=== PATIENT | male | born 1930 | race Caucasian/White ===

== ENCOUNTER 2016-08-16 00:40 | Inpatient (IN) | payer MEDICARE, OTHER ==
[~2016-08-16] VITALS: Ht 170.2 cm; Wt 68.3 kg
[2016-08-16] VITALS (10 sets, daily range): BP systolic 106–138; BP diastolic 42–61; PULSE 60–82; RESP 16–20; O2SAT 95–98
[~2016-08-16 00:40] MED LIST: ALBU18HF INH; AMLO10TA3 PO; ASPI-973 PO; ATOR40TA69 PO; BIMA2.5D5 BOTH_EYES; CA C1TAB77 PO; CARV12.52 PO; CLOP75TA28 PO; DUTA0.5C16 PO; FUR20 PO; LEVO25TA5 PO; LORA-302 PO; MONT10TA23 PO; MULT1CAP33 PO; NIAC500T21 PO; NPH10OT1A BOTH_EARS; OMEG-38 PO; TAMS0.4C29 PO
--- NOTE | 2016-08-16 00:43 | ED.REPORT ---
HPI-Neurologic Deficit Date of Service Aug 16, 2016 ED Provider: Miah Arriaza DO An 85 year old male with a history of CAD, hypothyroidism, hypertension, hyperlipidemia, TIA, and cerebrovascular disease on Plavix and ASA presents to the ED via EMS accompanied by his daughter with weakness and confusion onset 00: 30 today upon awakening. The patient went to sleep at 21:30 complaining of a headache and woke up unable to use the restroom on his own, which is unusual for him. He was unable to follow commands and was visually hallucinating. The patient hasn't fallen and his daughter denies fever, coughing, nausea, vomiting , or diarrhea recently. EMS found him with normal vital signs, without focal weakness, and with his speech at baseline per his daughter. The patient was hospitalized on 07/28/16 for TIA with dysarthria and left arm weakness. Nursing Notes Stated Complaint: CONFUSION, WEAKNESS Nursing Notes Reviewed: Yes Allergies: Coded Allergies: Sulfa (Sulfonamide Antibiotics) (Verified Adverse Reaction, Intermediate, PREVIOUSLY REPORTED UPSET STOMACH, 07/28/16) Scheduled Albuterol Sulfate (Ventolin HFA Inhaler) 200 Puff/18 Gm Inhaler 2 PUFF INH q 4- 6 hrs Amlodipine (Amlodipine) 10 Mg Tablet 10 MG PO DAILY Atorvastatin (Lipitor) 40 Mg Tablet 40 MG PO DAILY Bimatoprost (Lumigan) 45 Drop/2.5 Ml Ophsoln 1 GTT BOTH_EYES HS Brimonidine Tartrate (Alphagan P) 5 Ml Drops 0.1 ML OP BID Carvedilol (Carvedilol) 12.5 Mg Tablet 12.5 MG PO QPM Clopidogrel (Clopidogrel) 75 Mg Tablet 75 MG PO DAILY Doxycycline Hyclate (Vibramycin) 100 Mg Capsule 100 MG PO BID Dutasteride (Dutasteride) 0.5 Mg Capsule 0.5 MG PO DAILY Furosemide (Furosemide) 20 Mg Tab 10 MG PO DAILY Levothyroxine (Levothyroxine) 25 Mcg Tablet 25 MCG PO DAILY Montelukast (Montelukast) 10 Mg Tablet 10 MG PO QPM Multivitamin (Multivitamins) 1 Each Capsule 1 EACH PO DAILY Niacinamide (Niacin) 500 Mg Tablet 500 MG PO DAILY Bascom-3 Fatty Acids/Fish Oil (Bascom 3 1,000 mg Softgel) 1 Each Capsule 1 EACH PO DAILY Bascom-3/Dha/Epa/Fish Oil (Fish Oil 1,000 mg Softgel) 1 Each Capsule 1 EACH PO DAILY Tamsulosin ER (Tamsulosin ER) 0.4 Mg Cap.er.24h 0.4 MG PO DAILY Scheduled PRN Acetaminophen/Codeine 300-30mg (Tylenol/Codeine #3) 1 Each Tablet 1 TABLET PO Q6hrs PRN PRN Pain Hydrocodone-Acetaminophen 5-300 mg (Hydrocodone-Acetaminophen 5-300 mg) 1 Each Tablet 1 TABLET PO QID PRN PRN For Pain Lorazepam (Ativan) 0.5 Mg Tablet 0.5-1 MG PO HS PRN PRN For Sleep General Time Seen by Provider: 00:40 Chief Complaint Other (Generalized Weakness) Hx Obtained From: Patient Arrived By: Ambulance Sudden in Onset?: Yes Onset Occurred: Just prior to arrival Symptom Duration: Since onset Severity: Current: No pain currently Severity: Maximum: No pain Associated with: Reports: Hallucinations, Denies: Fever Pertinent Negative: Relieved by nothing Related History: Reports: CVA/TIA, Hypertension Immunizations: Unknown Recent Healthcare: Recent hospitalization Similar Sx Previous: Yes Risk Factors NIH Stroke Scale Level of Consciousness: Alert and responsive (0) Ask Month & Age: Dysarthric/intubated (1) Right Arm Motor Drift (10s): No drift 10 sec (0) Left Arm Motor Drift (10s): No drift 10 sec (0) Right Leg Motor Drift (5s): Drift, not touch bed (1) Left Leg Motor Drift (5s): Drift, not touch bed (1) Dysarthria: Severe slur unintel (2) NIHSS Score: 5 Time NIHSS Performed: 21:11 Date NIHSS Performed: Aug 16, 2016 Past Medical History Past Medical History Notes: Past Medical History 1. CAD history of coronary artery bypass grafting. 2. History of cerebrovascular disease and TIA. History of bilateral carotid endarterectomy. 3. Hypothyroidism 4. Possible history of previous CVA 5. Hypertension. 6. Hyperlipidemia Past Surgical History Past surgical history includes coronary artery bypass graft surgery, coronary arthroplasty, bilateral carotid endarterectomy Family History Stroke Smoking History Former Smoker Social History Alcohol Use: Denies alcohol use Drug Use: Denies drug use Other Social History: Lives with children Occupation Retired Ambulatory Status Independent Review of Systems Constitutional: Denies: Fever Respiratory: Denies: Non-productive cough GI: Denies: Diarrhea, Nausea, Vomiting Neurologic: Reports: Headache, Weakness Psychiatric: Reports: Confusion, Hallucinations, visual Complete sys rev & neg: except as marked. Physical Exam Initial Vital Signs Vital Signs (First) Date Time Temp Pulse Resp B/P Pulse Ox O2 Delivery O2 Flow Rate FiO2 08/16/16 00:45 37.2 82 18 129/44 97 Room Air Initial VS: Reviewed ENT: Mucous membranes moist, Conjunctiva normal Neck: Supple, Full range of motion Abdomen / GI: Soft, Non-tender Skin: Warm, Dry, No cyanosis Psychiatric: Mood/affect normal, Behavior normal, Normal thought content General/Constitutional: Awake, Alert, No acute distress Head / Eyes: Atraumatic, Normocephalic Respiratory / Chest: Breath sounds NL, Breath sounds = bilat, No respiratory distress Cardiovascular: Heart rate NL, Regular rhythm, Heart sounds NL Neurologic: No sensory deficits Mental Status: Positive: Confused Speech: Positive: Slurred (Similar to baseline) Focal Weakness: Positive: Weakness diffuse L, Weakness diffuse R Interpretation & Diagnostics Lab Results Interpretation Result Diagram: 08/16/16 0643 08/16/16 0643 Test 08/16/16 00:46 08/16/16 02:15 Prothrombin Time 11.3sec (8.1-12.5) Prothromb Time International Ratio 1.05ratio Activated Partial Thromboplast Time 36.4sec (22.8-33.0) Troponin T 0.010ug/L (0.0-0.011) Procalcitonin < 0.05ng/mL (See Comment) Hold [place] Top Tube Received (Received) Urine Color Yellow (YELLOW) Urine Appearance Clear (CLEAR,HAZY) Urine pH 7.0 (5.0-8.0) Urine Specific [place] 1.010 (1.003-1.035) Urine Protein Negativemg/dL (NEG,TRACE) Urine Glucose (UA) Negativemg/dL (NEGATIVE) Urine Ketones Negativemg/dL (NEGATIVE) Urine Occult Blood Negative (NEGATIVE) Urine Nitrite Negative (NEGATIVE) Urine Bilirubin Negative (NEGATIVE) Urine Urobilinogen Normalmg/dL (NORMAL) Urine Leukocyte Esterase Negative (NEGATIVE) Urine RBC 0-2/hpf (0-2) Urine WBC 0-5/hpf (0-5) Urine Epithelial Cells Occasional/hpf (NONE-MOD) Urine Crystals None seen (NONE SEEN) Urine Bacteria None/hpf (NONE-FEW) Urine Hyaline Casts None/lpf (NONE) Urine Granular Casts None seen (NONE SEEN) Urine Waxy Casts None seen (NONE SEEN) Urine Red Blood Cell Casts None seen (NONE SEEN) Urine White Blood Cell Casts None seen (NONE SEEN) Urine Mucus None seen (None Seen) Urine Trichomonas None seen (NONE SEEN) Urine Yeast None (NONE SEEN) Urine Culture Reflexed Not indicated Pulse Oximetry Interpretation Pulse Oximetry: Pulse Ox normal ECG Interpretation ECG Interpretation: Sinus rhythm rate 68 Left axis deviation Time: 01:29 Interpreted by: ED physician CBC Interpretation WBC elevated, Hgb normal BMP / CMP Interpretation BMP/CMP normal Cardiac / Vascular Interp Cardiac markers normal X-Ray Chest Interpretation Chest Xray Interpretation: Chronic changes No pneumonia identified View: Portable, 1 view Interpretation / Wet Read by: Wet read ED physician CT Head Interpretation CONCLUSION: Moderate involutional changes. Moderate patchy low density bilaterally in the deep white matter likely due to chronic ischemic small vessel disease. No acute intracranial abnormality. Transmitted to ED by Jhonny Pineda M.D. at 08/16/16 - 1:05:36 AM PST Study: Head CT no contrast Interpretation / Wet Read by: Interpret - Radiologist Re-Eval/Medical Decision Med Decision/Clinical Course History is from Talha's daughter. Talha does not hear well and I am not convinced he knows exactly why he is here. Family she states that he feels fine. According to his daughter he went to bed at 9:30 tonight with a bad headache. He woke up at 12:30 AM confused. He was hallucinating that there was a cat in the house. They do not own a cat. They had to escort him and hold them up while he urinated. His legs would not move. He has a history of multiple TIAs and similar presentation so EMS was called. He presented as a stroke activation. I saw him upon presentation. Speech was markedly dysarthric but his daughter states that at that its baseline. Initially he had very weak legs and he could barely lift them up off the gurney. After CT could hold him up for good 5 seconds. Beyond that he is at his base line. Please see the stroke score. He does not meet any sort criteria for thrombolytics. He is well out of the three-hour window and I am not exactly sure this was a stroke. We went looking for stroke mimics. Chest x-ray shows lots of chronic stuff but nothing that I can call it pneumonia. Urine dip is negative. Influenza is negative. He does have a leukocytosis. Perhaps he had a TIA tonight. Certainly no signs of meningitis. His symptoms have improved. When he first rolled and he could not lift up his legs he is now moving them fine. His daughter thinks that at space line. We will admit him to telemetry bed for observation tonight. Source of Hx: Old records Re-Evaluation/Progress : Time of Eval: 02:11 Patient Status: Condition unchanged Re-Evaluation/Progress Note: Additional physical exam performed. Discussed with patient and his daughter CT and x-ray results, diagnosis, and plan for discharge. Follow-up and return to the ER instructions given. Patient and his daughter agrees with plan for care and all questions were addressed. Consultation : Referral / Consult Name: Ashok Chin MD Consulted With: Hospitalist Call Returned at: 02:34 Welding Rod Coater: Agrees with eval, Agrees with plan, Accepts admit Counseled Regarding: Diagnosis, Need for admission Discharge & Departure Shift Change Sign-Out Response to Therapy: Improved Impression: Primary Impression: TIA (transient ischemic attack) Transient cerebral ischemia type: unspecified Qualified Code: G45.9 - Transient cerebral ischemic attack, unspecified Additional Impressions: Hallucination Leg weakness, bilateral Disposition: ADMITTED TO HOSPITAL Discharge Condition All VS Reviewed: Yes Condition: Stable Referrals: Arden Dejesus MD (PCP) Laya Attestation Portions of this note were transcribed by Laurie Álvarez. I, Dr. Arriaaz, personally performed the history, physical exam, and medical decision-making; I reviewed and confirmed the accuracy of the information in the transcribed note. Signed by: Laya Bergman, 08/16/2016, 02:43 copies to: Arden Dejesus MD, Todd P DO Aug 16, 2016 00:43 LAURIE ÁLVAREZ Aug 16, 2016 00:53 Left axis deviation Time: 01:29 Interpreted by: ED physician CBC Interpretation WBC elevated, Hgb normal BMP / CMP Interpretation BMP/CMP normal Cardiac / Vascular Interp Cardiac markers normal X-Ray Chest Interpretation Chest Xray Interpretation: Chronic changes No pneumonia identified View: Portable, 1 view Interpretation / Wet Read by: Wet read ED physician CT Head Interpretation CONCLUSION: Moderate involutional changes. Moderate patchy low density bilaterally in the deep white matter likely due to chronic ischemic small vessel disease. No acute intracranial abnormality. Transmitted to ED by Jhonny Pineda M.D. at 08/16/16 - 1:05:36 AM PST Study: Head CT no contrast Interpretation / Wet Read by: Interpret - Radiologist Re-Eval/Medical Decision Med Decision/Clinical Course History is from Talha's daughter. Talha does not hear well and I am not convinced he knows exactly why he is here. Family she states that he feels fine. According to his daughter he went to bed at 9:30 tonight with a bad headache. He woke up at 12:30 AM confused. He was hallucinating that there was a cat in the house. They do not own a cat. They had to escort him and hold them up while he urinated. His legs would not move. He has a history of multiple TIAs and similar presentation so EMS was called. He presented as a stroke activation. I saw him upon presentation. Speech was markedly dysarthric but his daughter states that at that its baseline. Initially he had very weak legs and he could barely lift them up off the gurney. After CT could hold him up for good 5 seconds. Beyond that he is at his base line. Please see the stroke score. He does not meet any sort criteria for thrombolytics. He is well out of the three-hour window and I am not exactly sure this was a stroke. We went looking for stroke mimics. Chest x-ray shows lots of chronic stuff but nothing that I can call it pneumonia. Urine dip is negative. Influenza is negative. He does have a leukocytosis. Perhaps he had a TIA tonight. Certainly no signs of meningitis. His symptoms have improved. When he first rolled and he could not lift up his legs he is now moving them fine. His daughter thinks that at space line. We will admit him to telemetry bed for observation tonight. Source of Hx: Old records Re-Evaluation/Progress : Time of Eval: 02:11 Patient Status: Condition unchanged Re-Evaluation/Progress Note: Additional physical exam performed. Discussed with patient and his daughter CT and x-ray results, diagnosis, and plan for discharge. Follow-up and return to the ER instructions given. Patient and his daughter agrees with plan for care and all questions were addressed. Consultation : Referral / Consult Name: Ashok Chin MD Consulted With: Hospitalist Call Returned at: 02:34 Welding Rod Coater: Agrees with eval, Agrees with plan, Accepts admit Counseled Regarding: Diagnosis, Need for admission Discharge & Departure Shift Change Sign-Out Response to Therapy: Improved Impression: Primary Impression: TIA (transient ischemic attack) Transient cerebral ischemia type: unspecified Qualified Code: G45.9 - Transient cerebral ischemic attack, unspecified Additional Impressions: Hallucination Leg weakness, bilateral Disposition: ADMITTED TO HOSPITAL Discharge Condition All VS Reviewed: Yes Condition: Stable Referrals: Arden Dejesus MD (PCP) Scribe Attestation Portions of this note were transcribed by Laurie Álvarez. I, Dr. Arriaza, personally performed the history, physical exam, and medical decision-making; I reviewed and confirmed the accuracy of the information in the transcribed note. Signed by: Laya Bergman, 08/16/2016, 02:43 copies to: Arden Dejesus MD, Todd P DO Aug 16, 2016 00:43 LAURIE ÁLVAREZ Aug 16, 2016 00:53
[2016-08-16 00:57] LABS: BASOPHILS % (AUTO) 0.3 % (0-3); EOSINOPHILS % (AUTO) 1.3 % (0-5); MONOCYTES % (AUTO) 10.4 % (4-12); Mean Corpuscular Hemoglobin 27.5 pg (27.0-35.0); Mean Corpuscular Volume 86.6 fL (81-100); NEUTROPHILS % (AUTO) 76.5 % (40-74); Platelet Count 518 bil/L (150-400)
[2016-08-16 01:19] LABS: INR 1.05 ratio
[2016-08-16 01:29] LABS: TROPONIN T 0.01 ug/L (0.0-0.011)
[2016-08-16 02:36] LABS: APPEARANCE,URINE CLEAR (CLEAR,HAZY); COLOR,URINE YELLOW (YELLOW); OCCULT BLOOD,URINE NEGATIVE (NEGATIVE); UROBILINOGEN,URINE NORMAL (NORMAL)
[2016-08-16] MEDS ORDERED: Ondansetron 2 mg/mL 2 mL Inj IV PRN (03:40)
[2016-08-16] MEDS ORDERED: Polyethylene Glycol (PEG) 17 Gm Powder PO PRN (03:40)
[2016-08-16] MEDS ORDERED: Alum-Mag Hydrox-Simeth 30 mL Suspension PO PRN (03:40)
[2016-08-16] MEDS ORDERED: HYDR-3090 PO (03:49)
[2016-08-16] MEDS ORDERED: OMEG1CAP56 PO (03:49)
--- NOTE | 2016-08-16 05:19 | PCM.HPMED ---
Subjective Date of Service Aug 16, 2016 Primary Provider: Admitting Physician: Ashok Chin MD Primary Care Physician: Arden Dejesus MD Attending Physician: Ashok Chin MD Chief Complaint: Weakness and confusion History of Present Illness: Patient is an 85-year-old male with CAD s/p CABG, hypothyroidism, hypertension, dyslipidemia and history of TIA presenting weakness and confusion. Note the patient was recently hospitalized at [facility] on 07/28/2016 for dysarthria and left arm weakness, suspected secondary to TIA. The patient is accompanied by his daughter, Preethi, at bedside at time of visit. Patient's daughter is providing much of the history as the patient has slurred speech at baseline. She states the patient reported a headache yesterday (08/15/2016) evening then took Tylenol- codeine #4 and went to bed. He woke up about midnight with weakness, confusion and visual hallucinations. The patient subsequently asked his daughter to summon EMS and he was brought to [facility] ED for further evaluation. In the ED, the patient initially displayed some lower extremity weakness but did not meet criteria for thrombolytics. He received a head CT that did not show any acute intracranial abnormality. At time of visit, the patient was essentially back to his baseline per his daughter. The patient reports fatigue and bilateral ear discomfort but otherwise denies dizziness, lightheadedness, chest pain, nausea, emesis. In the ED, vitals: temp 37.2, HR 64, RR 16 satting 95%, BP 106/56. Notable labs : WBC 12.1, Hgb 9.8, Hct 30.9, platelets 518. Glucose 150. Review of Systems: A comprehensive review of systems was conducted with the patient and found to be negative except as above in the History of Present Illness. Allergies Coded Allergies: Sulfa (Sulfonamide Antibiotics) (Verified Adverse Reaction, Intermediate, PREVIOUSLY REPORTED UPSET STOMACH, 07/28/16) Home Medications Amlodipine 10mg PO daily ASA 81mg PO daily Atorvastatin 40mg PO daily Carvedilol 12.5mg PO BID Plavix 75mg PO daily Dutasteride 0.5mg PO daily Lasix 10mg PO daily Hydrocodone-acetaminophen 5/325mg PO Q6 hours PRN Lorazepam 0.5mg PO QHS PRN anxiety MgOH 400mg PO daily Montelukast 10mg PO QHS Multivitamin Niacin 500mg PO daily [place] 3 - vitamin E 1000mg PO daily Tamsulosin 0.4mg PO daily Bimatoprost 0.01% 1gtt QHS PMH CAD s/p CABG Hypothyroidism Dyslipidemia History of TIA Hypertension CKD stage III AAA Asthma Anemia . Surgical History CABG Bilateral endarterectomy Family History Mother in 80s from cardiac disease Father unknown Social History Occupation: Retired, former [employer] Hx Alcohol Use: No Hx Substance Use: No Hx Tobacco Use: Yes Smoking Status: Former Smoker Living Arrangement: with Family Exam Vital Signs Vital Sign - Last Date Time Temp Pulse Resp B/P Pulse Ox O2 Delivery O2 Flow Rate FiO2 08/16/16 03:40 37.1 69 20 138/61 96 Room Air Exam General: Patient lying in bed, No acute distress, well-developed, well-nourished , appropriately interactive HEENT: Normocephalic, atraumatic. External ears without defect. Pupils equal, round, and reactive to light. Anicteric sclerae, moist conjunctivae, and no lid lag. Oropharynx free of erythema and cobble stoning with moist mucosa. Dentures. Hearing aid right ear. Left ear with cerumen, otherwise no visible erythema. Right ear without erythema. Neck: Supple. No lymphadenopathy or thyromegaly. Cardiovascular: Regular rate and rhythm with no murmurs, rubs, or gallops appreciated Pulmonary: Clear to auscultation bilaterally with no crackles, wheezes, or rhonchi. Normal respiratory effort with no use of accessory muscles. Abdomen: Bowel tones present. Soft, nontender, nondistended. Extremities: No clubbing, cyanosis, edema, or lymphadenopathy appreciated. Skin: Normal temperature, turgor, and texture; no rash, ulcers, or subcutaneous nodules appreciated. Neurological: Cranial nerves grossly intact. Motor strength 5/5 in upper and lower extremities bilaterally. Sensation equal in upper and lower extremities bilaterally. Normal muscle strength, tone, and bulk. Slurred speech at baseline. Psychiatric: Normal mood and affect. Alert and oriented to person, place, and time. Lab and Diagnostics Result Diagram: 08/16/16 0046 08/16/16 0046 X-Rays, CTs and MRIs 08/16/2016 CT HEAD WITHOUT CONTRAST CONCLUSION: Moderate involutional changes. Moderate patchy low density bilaterally in the deep white matter likely due to chronic ischemic small vessel disease. No acute intracranial abnormality. Radiologist: Jhonny Pineda MD Assessment & Plan Patient is an 85-year-old male with CAD s/p CABG, hypothyroidism, hypertension, dyslipidemia and history of TIA presenting weakness and confusion and admitted for possible TIA. 1. Suspected TIA. Present on admission. Active -Patient reportedly with history of TIAs, most recently 07/28/2016 -Head CT without acute intracranial activity -Patient presented with confusion and weakness; now back at baseline -Neuro checks Q4 hours -Continue Plavix, ASA, statin -TSH pending -MRI stroke protocol -Echocardiogram with bubble study 2. Leukocytosis. Present on admission. Active -WBC 12.1 -Elevated at previous hospitalization (07/28/2017 - 07/29/2017) with WBC 16.1, 13.8 -Possibly reactive to stress; no signs of active infection (UA negative; No cough, fever, chills) -Procalcitonin pending 3. Hyperglycemia, acute. Present on admission. Active -Random blood glucose 150 -No reported history of diabetes -Continue to follow 4. Coronary artery disease s/p CABG. Present on admission -Continue statin, carvedilol 5. Hypertension, chronic. Present on admission -Patient currently normotensive. Will continue amlodipine 6. Hypothyroidism, chronic. Present on admission -Continue levothyroxine 25mcg -TSH pending 7. Dyslipidemia, chronic. Present on admission -Continue statin 8. Chronic kidney disease stage 3. Present on admission -Creatinine 1.07 -Avoid nephrotoxins -Continue to monitor 9. Normocytic anemia, chronic. Present on admission -Hgb 9.8, Hct 30.9 -Likely secondary to CKD. No obvious bleed -Monitor with CBC Patient Status: Patient is admitted under observation status with expected length of stay less than 2 midnights due to severity of presenting symptoms, risk of adverse event, and complexity of treatment plan. VTE Prophylaxis: Sub-Q Heparin (Unfractionated) Resuscitation Status: CPR: Attempt Resuscitation Attending Statement The patient was seen and examined together with Dr. Brian on 08/16/16 and I agree with the history, exam and plan as outlined in the note above. Arslan Brian DO Aug 16, 2016 03:58 Ashok Chin MD Aug 16, 2016 06:10
--- NOTE | 2016-08-16 05:22 | NUR ---
admit: pt arrived to [facility] with daughter. pt [place], daughter assisted with admit questions and assessment. med rec complete from home med list. A&OX3, mumbled speech which daughter states is pt's baseline.will continue to monitor.
[2016-08-16] MEDS ORDERED: LORazepam 0.5 mg Tablet PO PRN (05:25)
[2016-08-16] MEDS ORDERED: HYDROcodone-APAP 5-325 mg Tablet PO PRN (05:25)
[2016-08-16 07:05] LABS: BASOPHILS % (AUTO) 0.4 % (0-3); EOSINOPHILS % (AUTO) 1.5 % (0-5); MONOCYTES % (AUTO) 10.4 % (4-12); Mean Corpuscular Hemoglobin 27.5 pg (27.0-35.0); Mean Corpuscular Volume 86.1 fL (81-100); NEUTROPHILS % (AUTO) 72.1 % (40-74); Platelet Count 455 bil/L (150-400)
[2016-08-16] MEDS: Heparin 5,000 Unit/mL Inj SUBQ SCH ×3 (08:04→23:47)
[2016-08-16] MEDS: Omega-3 Fatty Acids 1,000 mg Capsule PO SCH (08:07)
--- NOTE | 2016-08-16 08:15 | DRSVH ---
PROCEDURE: X-RAY CHEST ONE VIEW, PORTABLE ([id number]) INDICATIONS: confusional state TECHNIQUE: One view of the chest was acquired. COMPARISON: [facility], CR, XR CHEST 1VW (PORTABLE), 07/29/2016, 10:26. [facility], CR, CHEST 1VW (PORTABLE), 04/21/2014, 21:40. FINDINGS: Surgical changes and devices: Stable time. Lungs and pleura: No pleural effusions or pneumothorax. Lungs are abnormal with a mild interstitial prominence likely related to reduced inspiratory volume. Mediastinum: Mediastinal contours appear normal. Heart size is normal. Bones and chest wall: No suspicious bony lesions. Overlying soft tissues appear unremarkable. IMPRESSION: No acute disease, reduced inspiratory volume. Prior sternotomy wires, presumed prior CAB G. Dictated by: Presley Butler M.D. on 08/16/2016 at 8:14 Approved by: Presley Butler M.D. on 08/16/2016 at 8:14
--- NOTE | 2016-08-16 08:16 | DRSVH ---
PROCEDURE: CT BRAIN WITHOUT CONTRAST ([id number]) INDICATIONS: CONFUSION, WEAKNESS TECHNIQUE: Noncontrast 4.5 mm thick angled axial sections acquired from the foramen magnum to the vertex, with c oronal reformats. COMPARISON: [facility], CT, CT BRAIN WO CON, 07/28/2016, 12:00. FINDINGS: Image quality: Excellent. CSF spaces: Basal cisterns are patent. No extra-axial fluid collections. The ventricles are symmet olive in size and shape. Brain: No intracranial bleeds or masses. There is cerebral volume loss for age, with resultant vent ricular and sulcal prominence. There are periventricular and deep white matter chronic small vessel ischemic changes. There is intracranial internal carotid artery atherosclerosis. Skull and face: Calvarium and visualized facial bones appear intact, without suspicious lesions. Sinuses: Visualized sinuses and mastoids are clear. IMPRESSION: Moderate microvascular atherosclerotic change, no acute disease. Note: These findings are concordant with the preliminary interpretation. Dictated by: Presley Butler M.D. on 08/16/2016 at 8:14 Approved by: Presley Butler M.D. on 08/16/2016 at 8:14
--- NOTE | 2016-08-16 10:07 | NUR ---
Evaluation completed. Rec: Echelon/Dysphagia Mechanical. Medication in pureed. Please go to "Notes" then click on "Assessments and Notes" (bottom left corner of screen). Then select appropriate discipline tab on top of screen.
[2016-08-16] MEDS: LORazepam 0.5 mg Tablet PO PRN ×2 (10:40→19:46)
--- NOTE | 2016-08-16 11:58 | NUR ---
Case Management D: Pt not in room, observation information provided and explained to pt's Eva who is in room.
[2016-08-16] MEDS ORDERED: LIP40 PO (12:09)
[2016-08-16] MEDS ORDERED: ALBU18HF INH (12:11)
[2016-08-16] MEDS ORDERED: ACET1TAB12 PO (12:16)
[2016-08-16] MEDS ORDERED: BRIM5DRO10 OP (12:21)
[2016-08-16] MEDS ORDERED: DOXY100C PO (12:28)
--- NOTE | 2016-08-16 12:46 | DRSVH ---
PROCEDURE: MRI STROKE PROTOCOL ([id number]) Pre- and post-contrast brain MRI, non-contrast brain MR angiogram, pre- and postcontrast neck MR harmony ogram INDICATIONS: weakness TECHNIQUE: Brain: Noncontrast axial T1 spin echo, axial T2 fast spin echo, sagittal and axial FLAIR, coronal T2 fast spin echo, axial gradient echo, axial diffusion and ADC through the brain. After the administr ation of contrast, axial 3D VIBE of the cranial vasculature and brain. Brain MRA: Non-contrast 3-D time of flight MR angiogram, with multiple qkxojku-olqtdfamw-yptotdtoys (MIP) reformats performed. Neck MRA: Axial and sagittal TruFISP through the neck. Coronal dynamic MR angiogram during administ ration of contrast in the arterial and venous phases, with 3-dimenstional kbrwojn-viwtxdnya-rzboshvmo n (MIP) reformats constructed from subtraction images. COMPARISON: [facility], US, CAROTID DUPLEX DOPPLER BILAT, 01/12/2011, 10:12. [facility], CT, CT BRAIN WO CON, 08/16/2016, 0:56. [facility], MR, MR ANGIO NECK W&WO CON, 07/28/2016, 18:05. [facility], MR, MR BRAIN W&WO CON, 07/28/2016, 18:05. FINDINGS: Image quality: Excessive motion artifact on several imaging sequences does result in image degradati on in suboptimal evaluation of the brain parenchyma for subtle abnormalities. BRAIN: Excessive motion artifact results in limited evaluation of the brain for subtle parenchymal a bnormalities or lesions. CSF spaces: No extra-axial fluid collections are evident. The basal cisterns are patent. The ventr icles and cortical sulci are slightly prominent, similar to the previous MRI. Brain: No intracranial bleeds or mass effects. Confluent areas of the increased flair signal are kyrie ntified within the periventricular white matter. Additional scattered areas of increased flair signa l are noted within the deep white matter of the supratentorial brain, which has a similar pattern to the previous study. Please note that evaluation for parenchymal masses is limited on this study rela bola to excessive motion artifact. Diffusion weighted images show no acute ischemic insults. Brainst em appears normal. Normal intravascular flow voids are present. No abnormal intracranial enhancemen t. Skull and face: Calvarial marrow signal is normal. Orbits appear normal. Sinuses: Mucosal thickening is present involving the left maxillary sinus. Otherwise, the paranasal sinuses are clear. There appear to be mastoid effusions bilaterally. BRAIN MR ANGIOGRAM: Mild motion artifact does result in difficulty evaluating for subtle abnormaliti es involving the intracranial vessels. Anterior circulation: Intracranial internal carotid arteries are normal in size and enhancement. Mil d irregularity involving the bilateral internal carotid arteries engulfed in the Luke and cavernous portions of the internal carotid arteries is felt to be related to atherosclerosis. The flow within the paired anterior cerebral arteries is normal and symmetric. The flow within the middle cerebral arteries is normal and symmetric. The anterior communicating artery is seen. No stenoses, occlusion s, or aneurysms. Posterior circulation: The visualized portions of the vertebral arteries demonstrate normal caliber, and join to form a normal appearing basilar artery. The flow within the posterior cerebral arteries is normal and symmetric. No stenoses, occlusions, or aneurysms. NECK MR ANGIOGRAM: Mild motion artifact is present. Carotids: There is atherosclerotic irregularity noted involving the right brachiocephalic artery and the left common carotid artery. There appears to be artifact from a stent involving the right brach iocephalic artery near the origin of the right common carotid artery. Subsequently, evaluation of th e origin of the right common carotid artery is not adequate. There is moderate atherosclerotic irreg ularity involving the left common carotid artery origin. The common carotid arteries are otherwise n ormal in course and caliber. Susceptibility artifact is noted at the left carotid bulb, which obscur es evaluation of the lumen at this location, similar to the previous exam. Flow is seen extending be yond this region. Mild atherosclerotic irregularity is noted involving the bilateral internal caroti d arteries without high grade stenosis, occlusion, or aneurysm. Posterior circulation: The origins of the vertebral arteries appear patent. Extensive tortuosity and mild to moderate atherosclerotic irregularity involving both vertebral arteries is present (right sl ightly greater than left). However, these vessels are widely patent without high-grade narrowing or aneurysm. They both join normally to form the basilar artery. Miscellaneous: Prominent atherosclerosis of the thoracic aorta arch is present. There is susceptibi lity artifact identified just beyond the level of the left common carotid artery, which is felt to be located at the origin of the left subclavian artery. The left subclavian artery is otherwise unrema rkable. Questionable areas of aneurysm along the posterior arch may be present. Pre-contrast images through the neck show no soft tissue abnormalities. IMPRESSION: Excessive motion artifact. BRAIN MRI: 1. No acute intracranial hemorrhage or ischemia. 2. Extensive chronic small vessel ischemic changes and parenchymal atrophy are similar to the previo us exam. 3. Excessive motion artifact limits evaluation of the brain for subtle abnormalities. BRAIN MR ANGIOGRAM: Unchanged appearance of the intracranial arteries within the anterior and posterior circulation. No occlusions or high-grade narrowing is present. No aneurysms. NECK MR ANGIOGRAM: 1. Unchanged appearance of the carotid and vertebral arteries without high-grade narrowing, aneurysm , or occlusion. 2. Artifact from a presumed stent within the left carotid bulb obscures evaluation of this portion o f the artery. However, flow beyond this region is present. 3. Artifact from presumed stents at the distal aspect right brachiocephalic artery near the right co mmon carotid artery origin and at the origin of the left subclavian artery are similar to the previou s exam and results in limited evaluation of these vessels at these locations. Flow is seen beyond the se regions. 4. Prominent irregularity of the thoracic aorta arch with possible aneurysmal dilatation on the post erior arch. Please consider CT angiogram of the thoracic aorta for better evaluation. The estimate of stenosis included in the report of the imaging study was calculated using the NASCET method Dictated by: Marcus Bonner M.D. on 08/16/2016 at 11:45 Approved by: Marcsu Bonner M.D. on 08/16/2016 at 11:45
[2016-08-16] MEDS ORDERED: Albuterol 2.5 mg/3 mL Inhalation Solution NEB PRN (14:20)
--- NOTE | 2016-08-16 14:48 | NUR ---
Social Work Note: Initial Assessment Data& Assessment: EMR reviewed. SW met with pt, pt and pt daughter at bedside to discuss discharge planning, SW role explained. Talha Higuera is a 85 year old male under observation for AMS, leg weakness. Pt has Medicare and [employer] insurance coverage. Pt sees Arden Dejesus MD for primary care. Pt and pt live with their daughter Preethi and son in law's home in [place]. Pt typically drives him to any appointments. Pt lives in a one story home with three steps to enter the home. Pt uses a FWW with a seat for ambulation assistance at baseline. Pt has slurred speech at baseline but is communicative. Pt has had HH a couple years ago, but pt family does not remember which company the services were through. Pt has not been to a SNF in the past. Pt is a but not service connected. Pt does not have any LTC insurance. Pt provided with DPOA paperwork to review and complete when possible. Pt family to transport pt when medically ready. PT evaluation is pending. SW to continue to follow for MD and PT recommendations. Pt and pt family deny any other needs at this time. SW to continue to follow if any needs arise. Plan: Anticipated discharge home via POV when medically ready, R/O home health services for PT. PT evaluation is pending. SW to continue to follow for MD and PT recommendations. Pt and pt family deny any other needs at this time. SW to continue to follow if any needs arise. BRAYAN Godoy Addendum: 08/16/16 at 1453 by TED MEREDITH Amended: Links added.
--- NOTE | 2016-08-16 18:36 | NUR ---
Mobility/Gait Patient Alert with mild confusion. impulsive and anxious at times throughout day. patient responds well and is calm when family is present. patient attempts to get OOB without assist when he feels the urge to void. unsteady on feet. 1 person assist with FWW. this afternoon patient had difficulty picking up right foot, dragging behind him. needs verbal cues to lift foot with each step. Dr Velasquez notified of change. continue to monitor.
--- NOTE | 2016-08-16 23:45 | PCM.PNMED ---
Subjective Date of Service Aug 16, 2016 Subjective Patient is back to his baseline neurological status according to his and daughter. He tends to mumble and also has diminished hearing. Throat is difficult to have much of a conversation with him. He does not have any new complaints. Exam Vital Signs Vital Sign - Last Date Time Temp Pulse Resp B/P Pulse Ox O2 Delivery O2 Flow Rate FiO2 08/16/16 21:28 37.4 68 18 116/56 96 Room Air Intake and Output 08/15/16 08/15/16 08/16/16 Cumulative From/Thru 15:00 23:00 07:00 08/16/16 00:45 - 08/16/16 06:45 Intake Total 0 ml 0 ml Output Total 250 ml 250 ml Balance -250 ml -250 ml Intake Oral 0 ml 0 ml Output Urine Total 250 ml 250 ml Exam General: Patient lying in bed, No acute distress, well-developed, well-nourished , appropriately interactive. However, he mumbles and is difficult to understand. This is normal for him according to his family. HEENT: Normocephalic, atraumatic. External ears without defect. Pupils equal, round, and reactive to light. Anicteric sclerae, moist conjunctivae, and no lid lag. Oropharynx free of erythema and cobble stoning with moist mucosa. Dentures. Hearing aid right ear. Left ear with cerumen, otherwise no visible erythema. Right ear without erythema. Neck: Supple. No lymphadenopathy or thyromegaly. Cardiovascular: Regular rate and rhythm with no murmurs, rubs, or gallops appreciated Pulmonary: Clear to auscultation bilaterally with no crackles, wheezes, or rhonchi. Normal respiratory effort with no use of accessory muscles. Abdomen: Bowel tones present. Soft, nontender, nondistended. Extremities: No clubbing, cyanosis, edema, or lymphadenopathy appreciated. Skin: Normal temperature, turgor, and texture; no rash, ulcers, or subcutaneous nodules appreciated. Neurological: Cranial nerves grossly intact. Motor strength 5/5 in upper and lower extremities bilaterally. Sensation equal in upper and lower extremities bilaterally. Normal muscle strength, tone, and bulk. Slurred, mumbling speech at baseline per family. Psychiatric: Normal mood and affect. Alert and oriented to person, place, and time. Lab and Diagnostics Result Diagram: 08/16/1643 08/16/1643 X-Rays, CTs and MRIs 08/16/2016 CT HEAD WITHOUT CONTRAST CONCLUSION: Moderate involutional changes. Moderate patchy low density bilaterally in the deep white matter likely due to chronic ischemic small vessel disease. No acute intracranial abnormality. Radiologist: Jhonny Pineda MD Cardiac Echo Impressions Echocardiogram Report Name: CAROLINE KAY Study Date: 08/30/2015 Height: 67 in Hospital Exam Location: [facility] Weight: 162 lb Gender: Other BSA: 1.8 m2 : 1930 Age: 84 yrs BP: 122/64 mmHg Reason For Study: Aortic valve regurgitation Ordering Physician: Performed By: Messi Schultz Referring Physician: Jose Dejesus Interpretation Summary Left ventricular size is at the upper limits of normal and left ventricular systolic function appears normal except for a mild dyssynchronous contraction pattern, consistent with a conduction abnormality and septal motion consistent with post-operative state but no other focal wall motion abnormalities. The ejection fraction is estimated to be 60-65%. The E/A ratio is reversed with an elevated E/E', suggesting impaired early relaxation of the left ventricle with possible increased filling pressures but is unchanged compared to the previous study. There has been no significant change since the previous study. The right ventricle is normal in size and function and is unchanged compared to the previous study. The right ventricular systolic pressure is estimated at 21 mmHg assuming a right atrial pressure of 3 mm Hg, and is unchanged compared to the previous study. The left atrium is mildly dilated and has mildly increased in size since the prior echo exam. There is mild mitral regurgitation and mild-moderate aortic regurgitation. Both are unchanged compared to the previous study. There is no other significant valvular heart disease. The ascending aorta is moderately enlarged but is unchanged compared to the previous study. The abdominal aorta is borderline dilated at 2.9 cm. Assessment & Plan Patient is an 85-year-old male with CAD s/p CABG, hypothyroidism, hypertension, dyslipidemia and history of TIA presenting weakness and confusion and admitted for possible TIA. 1. Suspected TIA. Present on admission. Active -Patient reportedly with history of TIAs, most recently 07/28/2016 -Head CT without acute intracranial activity -Patient presented with confusion and weakness; now back at baseline -Neuro checks Q4 hours -Continue Plavix, ASA, statin -TSH pending -MRI stroke protocol to be done in a.m. -Echocardiogram with bubble study - Will check CT angiogram of the chest as suggested by MRI stroke protocol to look for thoracic aortic aneurysm. 2. Leukocytosis. Present on admission. Active -WBC 12.1 -Elevated at previous hospitalization (07/28/2017 - 07/29/2017) with WBC 16.1, 13.8 -Possibly reactive to stress; no signs of active infection (UA negative; No cough, fever, chills) -Procalcitonin pending 3. Hyperglycemia, acute. Present on admission. Active -Random blood glucose 150 -No reported history of diabetes -Continue to follow 4. Coronary artery disease s/p CABG. Present on admission -Continue statin, carvedilol 5. Hypertension, chronic. Present on admission -Patient currently normotensive. Will continue amlodipine 6. Hypothyroidism, chronic. Present on admission -Continue levothyroxine 25mcg -TSH pending 7. Dyslipidemia, chronic. Present on admission -Continue statin 8. Chronic kidney disease stage 3. Present on admission -Creatinine 1.07 -Avoid nephrotoxins -Continue to monitor 9. Normocytic anemia, chronic. Present on admission -Hgb 9.8, Hct 30.9 -Likely secondary to CKD. No obvious bleed -Monitor with CBC Patient Status: Patient will be seen by Dr. Lon Watson tomorrow and will decide upon a treatment course. Pain Evaluation: Adequate Pain Control VTE Prophylaxis: Sub-Q Heparin (Unfractionated) Resuscitation Status: CPR: Attempt Resuscitation Paul Velasquez MD Aug 16, 2016 23:45
[2016-08-16] MEDS: Codeine-APAP 30-300 mg Tablet PO PRN (23:48)
[2016-08-17] VITALS (10 sets, daily range): BP systolic 110–134; BP diastolic 54–66; PULSE 65–74; RESP 16–18; O2SAT 95–97
--- NOTE | 2016-08-17 06:43 | NUR ---
Anxiety: Pt's daughter stayed with pt through the night, states pt has "panic attacks". Pt requested Ativan at bedtime and again just before midnight. At midnight, it was too early for more Ativan, pt was given Tylenol with codeine and able to calm down again with daughters presence. Pt does not use call light, bed alarm activated. Pt found trying to climb out of the end of the bed a couple times. Is standing with assistance at bedside to use the urinal.
[2016-08-17] MEDS: Heparin 5,000 Unit/mL Inj SUBQ SCH ×2 (08:56→19:18)
[2016-08-17] MEDS: Omega-3 Fatty Acids 1,000 mg Capsule PO SCH (08:58)
[2016-08-17 10:14] LABS: BASOPHILS % (AUTO) 0.3 % (0-3); EOSINOPHILS % (AUTO) 2.8 % (0-5); MONOCYTES % (AUTO) 6.9 % (4-12); Mean Corpuscular Hemoglobin 27.4 pg (27.0-35.0); NEUTROPHILS % (AUTO) 75.5 % (40-74); Platelet Count 463 bil/L (150-400)
[2016-08-17 10:31] LABS: Magnesium 1.9 mg/dL (1.6-2.6)
[2016-08-17] MEDS: LORazepam 0.5 mg Tablet PO PRN ×2 (11:32→21:11)
--- NOTE | 2016-08-17 13:18 | NUR ---
Evaluation completed. Please go to "Notes" then click on "Assessments and Notes" (bottom left corner of screen). Then select appropriate discipline tab on top of screen.
--- NOTE | 2016-08-17 15:01 | NUR ---
Evaluation completed. Please go to "Notes" then click on "Assessments and Notes" (bottom left corner of screen). Then select appropriate discipline tab on top of screen.
--- NOTE | 2016-08-17 15:10 | NUR ---
Social Work: continued Discharge Planning Data & Assessment: SW met with patient and patient's at bedside to discuss discharge planning. SW provided patient with a list of Home Health providers. Patient's stated that the patient has had [facility] in the past and that is their choice fo HH. SW granted [facility] access and notified [facility] of the referral. SW will obtain F2f and give it to [facility] once it is available. SW will continue to follow. Plan: Patient will discharge home with [facility] PT/OT and Nursing. SW will continue to follow. Katarina Dos Santos LMSW, ACSwapna
--- NOTE | 2016-08-17 17:51 | DRSVH ---
[facility] [address] [place] [address] Echocardiogram Report Name: CAROLINE WANG Study Date: 08/17/2016 Height: 67 in Hospital Exam Location: [facility] Weight: 151 lb Gender: Other BSA: 1.8 m2 : 1930 Age: 85 yrs BP: 134/61 mmHg Reason For Study: WEAKNESS, CONFUSION Ordering Physician: Performed By: Selma Valdez Referring Physician: Jose Dejesus Interpretation Summary 1) Normal left ventricular thickness, size, and systolic function (EF 60- 65%). 2) No obvious focal wall motion abnormalities noted but poor endocardial definition reduces the sensitivity for the detection of such. 3) Normal right ventricular size and function. 4) Grade 2 diastolic dysfunction (pseudonormalization) pattern, consistent with elevated filling pressures. 5) Mild to moderate aortic regurgitation present. 6) Moderate dilated ascending aorta (diameter 4.3cm). 7) Compared to the Echo done 08/30/2015, no significant change. Procedure: A two-dimensional transthoracic echocardiogram with color flow and Doppler was performed. The study quality was technically adequate. The patient was not able to follow breathing instructions. Comparison is made with the echocardiogram of 08-30-2015. The patient was in normal sinus rhythm during the exam. Left Ventricle: The left ventricle is normal in size. Left ventricular wall thickness is normal. Proximal septal thickening is noted. Left ventricular systolic function is normal. The ejection fraction is estimated to be 60-65%. There are no obvious focal wall motion abnormalities noted but poor endocardial definition reduces the sensitivity for the detection of such. Assessment of diastolic parameters suggests a pseudonormalization pattern, consistent with elevated filling pressures. Right Ventricle: The right ventricle is normal in size and function. Atria: The left atrium is moderately dilated. The right atrium is severely dilated. There is no Doppler evidence for an atrial septal defect. Injection of contrast documented no interatrial shunt. Mitral Valve: There is mild to moderate mitral annular calcification. There is mild mitral regurgitation. Aortic Valve: The aortic valve is trileaflet. The aortic valve opens well. There is no aortic valve stenosis. There is mild to moderate aortic regurgitation. Tricuspid Valve: The tricuspid valve leaflets are thin and pliable. There is a trace or physiologic amount of tricuspid regurgitation. Pulmonary artery pressures cannot be estimated because of the lack of a measurable TR jet velocity. Pulmonic Valve: The pulmonic valve leaflets are thin and pliable; valve motion is normal. There is a trace or physiologic amount of pulmonic regurgitation. Great Vessels: The aortic root is mildly dilated. The ascending aorta is moderately enlarged. The IVC is of normal diameter and collapses greater than 50% with a sniff. This suggests a low right atrial pressure of 3 mm Hg. Pericardium/ Pleura There is no pericardial effusion. There is no pleural effusion. MMode/2D Measurements & Calculations LVIDd: 5.1 cm LA dimension: 4.6 cm RA long axis LVOT diam LVIDs: 3.0 cm FS: 40.0 % LA A2 area: 18.7 cm RA area AoV Opening IVSd: 1.3 cm LA A4 area: 23.1 cm LVPWd: 0.98 cm LA length (vol): 5.6 cm: 30.0 cm Ao root diam LA vol: 65.2 ml RA vol LA vol index : 117.ml asc Aorta RA Diam: 4.3 cm : 36.3 ml/m2 : 65.7 mm2 LV cardenas. diameter/BSA LV sys. diameter/BSA (cm/m^2): 2.8 (cm/m^2): 1.7 Doppler Measurements & Calculations Ao V2 max MV E max naren MV E/A: 0.85 PA V2 max : 202.5 cm/sec : 110.2 cm/sec Med Peak E' Naren : 73.5 cm/sec Ao max PG MV A max naren PA mean P.2 mmHg : 16.4 mmHg : 130.2 cm/sec E/E' med: 25.4 PA Accel Time Ao mean PG MV P1/2t: 52.2 msec Lat Peak E' Naren : 0.13 sec LVOT Max Naren E/E' lat: 16.2 : 124.7 cm/sec Pulm A Revs Dur APOLINAR(I,D): 2.4 cm sev ratio MV A dur : 0.14 sec AI P1/2t : 475.3 msec AI dec slope : 168.3 cm/s2c MV dec time MV P1/2t max naren Ao V2 mean LV V1 max PG : 0.17 sec : 131.5 cm/sec MVA(P1/2t): 4.2 cm2 Ao V2 VTI LV V1 VTI: 25.5 cm APOLINAR(V,D): 2.3 cm2 PA V2 mean APOLINAR indexed to BSA E/e' average Pulm A Revs Dur - MV : 53.7 cm/sec (cm^2/m^2): 1.3 A Dur: 0.01 msec Reading Physician:05:50 PM
--- NOTE | 2016-08-17 18:20 | NUR ---
Ambulation/communication Assisted pt with FWW to bathroom and to use urinal several times during shift. Pt a little shaky on feet, and slightly impulsive as he gets out of bed. As instructed, pt and family always used the call light for assistance. Had no near falls, bed in low position, wheels locked and bed alarm on. Family in room at all times to help monitor, provide distraction, and assist with communication. Pt very [place] and has very mumbled speech. Hearing aids wont be available per family. Family help and communication appreciated.
--- NOTE | 2016-08-17 18:38 | DRSVH ---
PROCEDURE: CT ANGIOGRAPHY OF THE CHEST WITH CONTRAST ([id number]) INDICATIONS: Evaluate for thoracic aortic aneurysm as seen on MR TECHNIQUE: After the administration of intravenous contrast, 3 mm thick sections acquired from the lung apices t o the posterior lung bases. 3-dimensional maximum intensity projection (MIP) oblique sagittal reform ats were then acquired parallel to the aortic arch, and/or 3-dimensional volume rendering reformats. For radiation dose reduction, the following was used: automated exposure control. COMPARISON: [facility], CR, XR CHEST 1VW (PORTABLE), 08/16/2016, 1:14. [facility], MR, MR STROKE PROTOCOL, 08/16/2016, 11:15. FINDINGS: Image quality: There is motion artifact slightly limiting evaluation. Aorta: There is mild aneurysmal dilatation of the thoracic aorta, with the ascending aorta measuring up to 4.2 cm in diameter, the aortic arch measuring up to approximately 4 cm proximally and 4.1 cm di stally. The descending thoracic aorta measures up to 4.0 cm proximally and approximately 3.1 cm at t he level of the diaphragmatic hiatus. There is marked tortuosity of the thoracic aorta as well as ex tensive atherosclerotic vascular calcification and plaque. Within the abdomen, there is lobulated co ntour irregularity at the level of the renal arteries. There is a left anterolateral projection june uring approximately 1.5 cm with intraluminal thrombus suspicious for a thrombosed pseudoaneurysm. We sissy't clearly, there is also a left lateral lobulated projection with contrast extension suspicious f or a penetrating episodic ulcer or pseudoaneurysm. Within the visualized intrarenal abdominal aorta there is a dissection flap with the distal extent not visualized on the current study. There is a three-vessel aortic arch with a stent demonstrated in the proximal left subclavian artery at its origin. The visualized great vessels appear grossly patent, with the stent not well evaluated . There are focal stenoses at the origins of the celiac and superior mesenteric arteries of greater than 50%. There's a stent at the origin of the left renal artery with stent patency not well valuate d. There is a focal stenosis at the origin of the right renal artery of greater than 70%. Mediastinum: No hematomas. Heart size is normal. No pericardial effusion. There are postsurgical changes consistent with prior CABG. No mediastinal or hilar adenopathy by size criteria. Central pul monary arteries are normal in size. Esophagus is normal in caliber. No hiatal hernia. Lungs and pleura: There is dependent atelectasis bilaterally. In addition, there are medial subpleu ral opacities in the lower lobes including a lobulated lesion along the descending thoracic aorta. F indings are suggestive of chronic rounded atelectasis. There are calcified pleural plaques bilateral ly suggestive of prior asbestos exposure. No pleural effusions or pneumothorax. Central and periphe ral airways are patent and normal in caliber. Bones and chest wall: No axillary adenopathy by size criteria. Thyroid gland is heterogeneous with small indistinct nodules bilaterally. No suspicious bony lesions. No vertebral body compression fra ctures. Abdomen: Visualized upper abdominal solid organs and bowel loops appear normal. IMPRESSION: 1. Dissection of the infrarenal abdominal aorta partially visualized and of indeterminate acuity. R ecommend correlation clinically and dedicated repeat study of the distal aorta and iliac arteries for further evaluation when clinically feasible. 2. Small lobulated contour irregularities of the aorta at the level of the renal arteries suspicious for pseudoaneurysms or penetrating atherosclerotic ulcers. 3. Aneurysmal dilatation of the thoracic aorta as described. 4. Focal stenoses at the origins of the celiac and superior mesenteric arteries and the right renal artery. 5. Vascular stents at the origins of the left subclavian and left renal arteries with patency not we ll evaluated. Findings discussed with Dr. Velasquez on 08/17/16 at 6:30 PM. Dictated by: Lowell Abad M.D. on 08/17/2016 at 18:36 Approved by: Lowell Abad M.D. on 08/17/2016 at 18:36
--- NOTE | 2016-08-17 22:22 | CONS ---
[address] [address] CONSULTATION REPORT PATIENT: CAROLINE WANG : 1930 MR#: [id number] ADMIT: 08/16/2016 JOB ID: [id number] DATE OF SERVICE: 08/17/2016 REQUESTING PROVIDER: Paul Velasquez MD CHIEF COMPLAINT: Transient episodes of confusion. HISTORY OF PRESENT ILLNESS: The patient is a pleasant 85-year-old, right-handed man with multiple medical problems who presented to the hospital after a transient episode of confusion and generalized weakness. During that episode, his reports that he was unable to get words out or to follow any commands. She reports that these episodes have been occurring since late July and last for less than one hour. However, she notes that he is confused following the episodes, and the confusion may last longer than 1 hour. Reportedly, this episode was associated with the patient going to sleep at 9:30 in the evening after noting headache and waking up unable to use the restroom on his own and unable to follow commands and was noted to have visual hallucinations at that time. His describes the episodes as stereotyped episodes that have been ongoing since [facility]. He was admitted on July 28, 2016 for workup for a possible TIA, however, he underwent an extensive evaluation that was unremarkable. We discussed the differential diagnosis for his symptoms in detail. PRESENT MEDICATIONS: Include: 1. Tylenol p.r.n. 2. Albuterol p.r.n. 3. Maalox p.r.n. 4. Amlodipine. 5. Atorvastatin. 6. Carvedilol. 7. Clopidogrel 75 mg. 8. Tylenol with codeine as needed for pain. 9. Finasteride. 10. Furosemide. 11. Heparin. 12. Hydrocodone as needed for pain. 13. Latanoprost. 14. Levothyroxine. 15. Lorazepam p.r.n. 16. Montelukast. 17. Niacin. 18. Agate-3 fatty acids. 19. Zofran as needed for nausea. 20. Polyethylene glycol as needed for constipation. 21. Senna as needed for constipation. 22. Tamsulosin. 23. Multivitamins. IMAGING STUDIES: He underwent imaging studies here including a CT of the head which demonstrated moderate microvascular atherosclerotic changes with no acute disease. He underwent a chest x-ray, which demonstrated no acute disease with reduced inspiratory volume, prior sternotomy wires and presumed prior coronary artery bypass graft. He underwent a magnetic resonance imaging study of his brain, this is the 2nd study, which was limited by excessive motion artifact, however, noted no acute intracranial hemorrhage or ischemia, extensive chronic small vessel ischemic changes and parenchymal atrophy. Excessive motion artifact limits evaluation of the brain for subtle abnormalities. MRA demonstrated unchanged appearance of intracranial arteries within the anterior and posterior circulation. No occlusions or high-grade narrowing was noted. No aneurysms. Neck MRA demonstrated unchanged appearance of the carotid and vertebral arteries without high-grade narrowing, aneurysm, or occlusion. Artifact from a presumed stent within the left carotid bulb obscures evaluation of this portion of the artery, however, flow beyond this region is present. Artifact from presumed stents at the distal aspect of the right brachiocephalic artery near the right common carotid artery origin and the origin of the left subclavian artery are similar to the previous exam results in limited evaluation of these vessels at these locations. Flow is seen beyond these regions. Prominent irregularity of the thoracic aortic arch, with possible aneurysmal dilatation of the posterior arch. Please consider CT angiogram of the thoracic aorta for better evaluation. His reports no history of seizures. She reports no history of traumatic brain injury. She also notes no history of any symptoms of mild cognitive impairment or dementia. PAST MEDICAL HISTORY: Coronary artery disease, hypothyroidism, hypertension and dyslipidemia, chronic kidney disease, stage 3, abdominal aortic aneurysm, asthma and anemia. PAST SURGICAL HISTORY: Status post coronary artery bypass graft and bilateral carotid endarterectomy. HOME MEDICATIONS: Did include: 1. Amlodipine. 2. Aspirin 81 mg. 3. Atorvastatin. 4. Carvedilol. 5. Plavix 75 mg. 6. Lasix. 7. Hydrocodone/acetaminophen. 8. Lorazepam. 9. Magnesium oxide. 10. Montelukast. 11. Multivitamin. 12. Niacin. 13. Agate 3 fatty acid. 14. Tamsulosin. 15. Bimatoprost. 16. Dutasteride. FAMILY HISTORY: No neurologic disorders. SOCIAL HISTORY: He is retired. No tobacco, alcohol, or drugs. Lives with his . LABORATORY STUDIES: WBC 12.1, hemoglobin 9.8, hematocrit 30.9, and platelets of 518. Sodium 134, potassium 4.9, chloride was 94, bicarb 26, BUN was 22, creatinine was 1.07 and glucose was 150. PHYSICAL EXAMINATION: Temperature 37.0, pulse of 67, respiratory rate of 18, blood pressure 120/66, pulse oximetry of 97% on room air. General: The patient is a well-developed well-nourished man in no acute distress. He has severe auditory impairment and communication was primarily through written questions and instructions. Head: Normocephalic, atraumatic. Chest: Clear to auscultation. Heart: Regular rate and rhythm. Abdomen: Soft, nondistended, nontender. Extremities: No cyanosis, clubbing, or edema. Speech is dysarthric, however, his reports that is baseline speech for him given his auditory impairment. Neurologic examination: Mental status: He is awake, alert, oriented x3. Speech was dysarthric as noted above. No aphasia. His reports that his dysarthric speech started after the development of his severe auditory impairment which is bilateral. Cranial nerves: Pupils equal, round, reactive to light. Extraocular movements are smooth and conjugate with no evidence of nystagmus. His face appears symmetrical. Facial sensation was intact to light touch and temperature. Auditory sensation was intact to finger rub. Palatal elevation was symmetrical. Tongue was midline. Sternocleidomastoid and trapezii are 5/5 throughout bilaterally. Motor: Normal tone and bulk. Muscle strength 5/5 throughout. Sensation intact to light touch and temperature. Deep tendon reflexes were diminished, however, were symmetrical. Plantars were flexor bilaterally. Coordination: [id number] was somewhat tremulous on the left, however, was intact with no evidence of dysmetria. Gait was deferred. IMPRESSION: Transient stereotyped episodes of generalized weakness and confusion. We discussed the differential diagnosis in detail. It appears that he underwent an extensive evaluation for possible cerebrovascular etiology. I also discussed the possibility of a vascular dementing process in detail with him and his . However, his has not noticed any symptoms suggestive of this. I did discuss the increased risk of seizures in patients with dementia. She reports that at baseline he does not exhibit any signs of cognitive impairment or dementia. He continues to have episodes despite being on dual antiplatelet therapy and as noted above in the magnetic resonance angiograms, there is no evidence of significant intracranial or extracranial stenosis noted. Although he does have a history of coronary artery disease and is status post coronary artery bypass graft, there is no history of atrial fibrillation. I did discuss the differential diagnosis in detail with the patient and his . RECOMMENDATIONS: I do recommend obtaining an electroencephalogram. I do also recommend an empirical trial of an anticonvulsant. Given the side effect profile, I do recommend renally dosed levetiracetam. Given his present status of renal function, I do recommend 500 mg twice daily. I explained to him and his that this would be an empirical trial to exclude the possibility of a possible ictal etiology for his symptoms as an extensive evaluation for a cerebrovascular etiology that has been so far unrevealing. At this point, I do recommend that he stay on dual antiplatelet therapy. We discussed side effects of levetiracetam in detail. The patient and his agree to proceed with this medication. I did explain the nature of an empirical trial, that is, we would prescribe the medication and monitor the frequency of these stereotyped episodes. His has not noted any staring spells or shaking/twitching, however, she has noted that these episodes appear to be stereotyped in nature and have increased in frequency. Discuss seizure precautions. Will continue to follow. Thank you, again, kindly, Dr. Velasquez, for allowing me to participate in the care of this patient. Please feel free to contact me with any questions or concerns. ADDITIONAL INFORMATION: OBJECTIVE: Temperature 36.3, pulse of 67, respiratory rate of 18, blood pressure 149/64, pulse oximetry 97% on room air. General: The patient is a well-developed well-nourished man in no acute distress. He has severe auditory impairment and communicates primarily through written questions and answers. Head normocephalic, atraumatic. Chest clear to auscultation. Heart: Regular rate and rhythm. Abdomen: Soft, nondistended, nontender. Extremities: No cyanosis, clubbing, or edema. Speech is mildly dysarthric. However, his daughter reports that he is at baseline. NEUROLOGIC EXAMINATION: Mental status: He is awake, alert, oriented x3. Speech was noted to be mildly dysarthric as above, however, reportedly this is baseline. No aphasia. Cranial nerves: Pupils equal, round, reactive to light. Extraocular movements were smooth and conjugate with no evidence of nystagmus. Face appeared symmetrical. Facial sensation was intact to light touch and temperature. Auditory sensation was severely diminished to finger rub. Palatal elevation was symmetrical. Tongue was midline. Sternocleidomastoid and trapezii were 5/5 bilaterally. Motor: Normal tone and bulk. Muscle strength 5/5 bilaterally. Sensation was intact to light touch and temperature. Deep tendon reflexes were diminished, however, symmetrical. Plantars were flexor bilaterally. Coordination: [id number] was somewhat tremulous on the left, however, was intact with no evidence of dysmetria. Gait was deferred. Addenda added by YANNI 08/19/16 at 7:16am
[2016-08-18] VITALS (9 sets, daily range): BP systolic 116–149; BP diastolic 53–64; PULSE 66–77; RESP 16–18; O2SAT 92–97
--- NOTE | 2016-08-18 00:09 | PCM.PNMED ---
Subjective Date of Service Aug 18, 2016 Subjective He has no new complaints today. He has no chest pain and he has no abdominal pain. Exam Vital Signs Vital Sign - Last Date Time Temp Pulse Resp B/P Pulse Ox O2 Delivery O2 Flow Rate FiO2 08/17/16 20:47 37.0 69 18 127/61 97 Room Air Intake and Output 08/17/16 08/17/16 08/18/16 Cumulative From/Thru 15:00 23:00 07:00 08/16/16 00:45 - 08/17/16 21:05 Intake Total 400 ml 900 ml Output Total 301 ml 1377 ml Balance 99 ml -477 ml Intake Oral 400 ml 900 ml Output Urine Total 300 ml 1375 ml Urine/Stool Mix 1 ml 2 ml Exam General: Patient lying in bed, No acute distress, well-developed, well-nourished , appropriately interactive. However, he mumbles and is difficult to understand. This is normal for him according to his family. HEENT: Normocephalic, atraumatic. External ears without defect. Pupils equal, round, and reactive to light. Anicteric sclerae, moist conjunctivae, and no lid lag. Oropharynx free of erythema and cobble stoning with moist mucosa. Dentures. Hearing aid right ear. Left ear with cerumen, otherwise no visible erythema. Right ear without erythema. Neck: Supple. No lymphadenopathy or thyromegaly. Cardiovascular: Regular rate and rhythm with no murmurs, rubs, or gallops appreciated Pulmonary: Clear to auscultation bilaterally with no crackles, wheezes, or rhonchi. Normal respiratory effort with no use of accessory muscles. Abdomen: Bowel tones present. Soft, nontender, nondistended. Extremities: No clubbing, cyanosis, edema, or lymphadenopathy appreciated. Skin: Normal temperature, turgor, and texture; no rash, ulcers, or subcutaneous nodules appreciated. Neurological: Cranial nerves grossly intact. Motor strength 5/5 in upper and lower extremities bilaterally. Sensation equal in upper and lower extremities bilaterally. Normal muscle strength, tone, and bulk. Slurred, mumbling speech at baseline per family. Psychiatric: Normal mood and affect. Alert and oriented to person, place, and time. Lab and Diagnostics Result Diagram: 08/17/16 0940 08/17/16 0940 Microbiology Blood cultures are pending and influenza screen is negative X-Rays, CTs and MRIs 08/16/2016 CT HEAD WITHOUT CONTRAST CONCLUSION: Moderate involutional changes. Moderate patchy low density bilaterally in the deep white matter likely due to chronic ischemic small vessel disease. No acute intracranial abnormality. Radiologist: Jhonny Pineda MD Cardiac Echo Impressions Echocardiogram Report Name: CAROLINE KAY Study Date: 08/30/2015 Height: 67 in Hospital Exam Location: [facility] Weight: 162 lb Gender: Other BSA: 1.8 m2 : 1930 Age: 84 yrs BP: 122/64 mmHg Reason For Study: Aortic valve regurgitation Ordering Physician: Performed By: Messi Schultz Referring Physician: Jose Dejesus Interpretation Summary Left ventricular size is at the upper limits of normal and left ventricular systolic function appears normal except for a mild dyssynchronous contraction pattern, consistent with a conduction abnormality and septal motion consistent with post-operative state but no other focal wall motion abnormalities. The ejection fraction is estimated to be 60-65%. The E/A ratio is reversed with an elevated E/E', suggesting impaired early relaxation of the left ventricle with possible increased filling pressures but is unchanged compared to the previous study. There has been no significant change since the previous study. The right ventricle is normal in size and function and is unchanged compared to the previous study. The right ventricular systolic pressure is estimated at 21 mmHg assuming a right atrial pressure of 3 mm Hg, and is unchanged compared to the previous study. The left atrium is mildly dilated and has mildly increased in size since the prior echo exam. There is mild mitral regurgitation and mild-moderate aortic regurgitation. Both are unchanged compared to the previous study. There is no other significant valvular heart disease. The ascending aorta is moderately enlarged but is unchanged compared to the previous study. The abdominal aorta is borderline dilated at 2.9 cm. Assessment & Plan Patient is an 85-year-old male with CAD s/p CABG, hypothyroidism, hypertension, dyslipidemia and history of TIA presenting weakness and confusion and admitted for possible TIA. 1. Suspected TIA. Present on admission. Active -Patient reportedly with history of TIAs, most recently 07/28/2016 -Head CT without acute intracranial activity -Patient presented with confusion and weakness; now back at baseline -Neuro checks Q4 hours -Continue Plavix, ASA, statin -TSH pending -MRI stroke protocol to be done in a.m. -Echocardiogram with bubble study - He have checked CT angiogram of the chest as suggested by MRI stroke protocol to look for thoracic aortic aneurysm. 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 I discussed this with Dr. Segal who is a plant floor automation manager health management consultant and he also believes it is chronic and nothing to worry about. A repeat CT angiogram was recommended by radiology and could be performed to see if there is any progression of the dissection the next 48-[address] Watson his ordered an EEG and awaiting final interpretation. 2. Leukocytosis. Present on admission. Active -WBC 12.1 -Elevated at previous hospitalization (07/28/2017 - 07/29/2017) with WBC 16.1, 13.8 -Possibly reactive to stress; no signs of active infection (UA negative; No cough, fever, chills) -Procalcitonin pending 3. Hyperglycemia, acute. Present on admission. Active -Random blood glucose 150 -No reported history of diabetes -Continue to follow 4. Coronary artery disease s/p CABG. Present on admission -Continue statin, carvedilol 5. Hypertension, chronic. Present on admission -Patient currently normotensive. Will continue amlodipine 6. Hypothyroidism, chronic. Present on admission -Continue levothyroxine 25mcg -TSH pending 7. Dyslipidemia, chronic. Present on admission -Continue statin 8. Chronic kidney disease stage 3. Present on admission -Creatinine 1.07 -Avoid nephrotoxins -Continue to monitor 9. Normocytic anemia, chronic. Present on admission -Hgb 9.8, Hct 30.9 -Likely secondary to CKD. No obvious bleed -Monitor with CBC Patient Status: Patient will be seen by Dr. Lon Watson tomorrow and will decide upon a treatment course. Pain Evaluation: Adequate Pain Control VTE Prophylaxis: Sub-Q Heparin (Unfractionated) VTE Mechanical Devices: Venous Foot Pump Resuscitation Status: CPR: Attempt Resuscitation EvaPaul MD Aug 18, 2016 00:09
[2016-08-18] MEDS: Heparin 5,000 Unit/mL Inj SUBQ SCH ×3 (01:35→16:22)
--- NOTE | 2016-08-18 05:36 | NUR ---
PT ACTIVITY Pt has slept intermittently on shift. No c/o pain. No other c/o, except for some itching at end of shift. Pts home lotion put on arms and legs to help relieve symptoms. Will ask day shift to change bedding and give pt a bed bath. Pts daughter stayed overnight. Continue to monitor. Call light in reach. Bed alarm on. Intentional rounding. Addendum: 08/18/16 at 0626 by RONAK MORTON RN At end of shift pt c/o back pain. Pt only wanted 1/2 pill of tylenol w/ codeine, dose given. Pt continued to c/o itching, pt stated, "I've been itching all night, it was after the CT when I got the injection. I had a CT before without the injection, and I was fine." Pts daughter stated, pt takes Claritin at home sometimes for itching. called, rec'd orders for Claritin, dose given. Continue to monitor. Addendum: 08/18/16 at 0656 by RONAK MORTON RN When pain and itching reassessed. Pt states, "It's going away."
[2016-08-18] MEDS: Codeine-APAP 30-300 mg Tablet PO PRN (05:55)
[2016-08-18 07:25] LABS: BASOPHILS % (AUTO) 0.6 % (0-3); EOSINOPHILS % (AUTO) 2.9 % (0-5); MONOCYTES % (AUTO) 8.9 % (4-12); Mean Corpuscular Hemoglobin 27.5 pg (27.0-35.0); Mean Corpuscular Volume 84.9 fL (81-100); NEUTROPHILS % (AUTO) 72.7 % (40-74); Platelet Count 475 bil/L (150-400)
[2016-08-18 07:42] LABS: Magnesium 1.9 mg/dL (1.6-2.6); Phosphorus 3.1 mg/dL (2.5-4.9)
[2016-08-18] MEDS: Omega-3 Fatty Acids 1,000 mg Capsule PO SCH (08:59)
--- NOTE | 2016-08-18 15:03 | NUR ---
Case Management: Spoke with patient, and family at the bedside, regarding observation status, Medicare B coverage this hospitalization. Patient status is being reviewed daily. Will follow-up with patient and family again tomorrow if they have further questions/concerns. Megan Melendez RN
--- NOTE | 2016-08-18 15:03 | NUR ---
NUTRITION ASSESSMENT ASSESS: Pt is an 85yo male admitted for AMS, general weakness and hallucinations. Pt has a history of TIAs, and a recent admit for a suspected TIA. Pt presented w/ confusion which has resolved. Per ST evaluation, reports that pt has speech deficit from prior TIA, and follows a dysphagia diet at home. also notes increased coughing at meals, and using straws for all liquids. PMHx: CAD s/p CABG, hypothyroidism, DLD, Hx of TIA, HTN, CKD Stage III, Asthma, Anemia, AAA LABS: Gluc 112, Alb 3.2 MEDS: Lasix, Plavix, Lipitor, MVI, Niacin, Synthroid GI: 0 BM SKIN: Sony 19 WT: 68.5 kg BMI: 23.9 kg/m2 DIET: Dysphagia Mechanical w/ NTL PO Ave. 50% EST. NEEDS: Kcals: 8905-4887 kcal (25-30 kcal/kg BW) Protein: 70-85g (1.0-1.2g/kg BW) NUTRITION DIAGNOSIS: 1) Chew/swallowing difficulties related to general weakness, recent suspected TIA and chronic dysphagia diet as evidenced by diet recommendations per ST evaluation. 2) Inadequate oral intake related to chronic dysphagia diet and general weakness as evidenced by average PO intake of 50%. NUTRITION INTERVENTION: 1) Monitor diet tolerance per ST evaluation. 2) Add Mighty Shakes on L&D trays. MONITOR / EVAL: Diet tolerance, PO intake, labs, weight, GI, POC. Continue to monitor per moderate nutrition risk guidelines. Addendum: 08/18/16 at [address] Auxiliary student documentation reviewed. I agree with above documentation. Alena Clemente RDN, CD
--- NOTE | 2016-08-18 17:48 | NUR ---
ITCHING/CT/HEARING P-patient extremely hard of hearing, c/o itching on limbs, and will have CT tomorrow. I-Patient hearing aid reapplied, nurse face patient when speaking. MD to order Benadryl for itching. E- Patient able to understand, appears less confused.
[2016-08-18] MEDS: diphenhydrAMINE 25 mg Capsule PO PRN (18:32)
[2016-08-18] MEDS: levETIRAcetam 500 mg Tablet PO SCH (20:16)
--- NOTE | 2016-08-18 20:31 | CONS ---
[address] [address] CONSULTATION REPORT PATIENT: CAROLINE WANG : 1930 MR#: [id number] ADMIT: 08/16/2016 JOB ID: [id number] DATE OF SERVICE: 08/18/2016 Neurology progress note. SUBJECTIVE: Today I met his daughter. She was at the bedside. She reports that there have been no overnight events. He has not had any further spells. She also reports that they have attributed his speech to a prior TIA or stroke. However, I explained that I suspect that this may be secondary to his severe auditory impairment as an extensive evaluation has been performed and did not reveal any evidence of a stroke or any evidence suggestive of a recent transient ischemic attack. I did also discuss in detail the nature of the differential diagnosis for this patient. We discussed the potential etiology for the spells. I explained that TIAs were unlikely to be the explanation for his multiple stereotyped spells as, by this point, he would have most likely had a stroke. We discussed the possibility that the spells may represent an ictal phenomenon. Although the mild degree of slowing noted over the left temporal lobe intermittently on the electroencephalogram is not clearly ictal in nature, it can be seen in a postictal satting. We did discuss an empirical trial of levetiracetam. We did discuss starting with a renally appropriate dose. In this case, 500 mg twice daily. Reviewed side effects in detail. There have been no overnight spells. We discussed the role of levetiracetam as an empirical trial. We also discussed the importance of followup as an outpatient. We discussed the possibility that the spells may represent an ictal phenomenon in detail. I discussed this with the patient and the patient's daughter. Thank you, again, kindly Dr. Velasquez, for allowing me to participate in the care of this patient. Please feel free to contact me with any questions or concerns. I advised followup with [facility] for a followup appointment.
[2016-08-19] VITALS (7 sets, daily range): BP systolic 111–132; BP diastolic 52–65; PULSE 62–85; RESP 16–19; O2SAT 94–98
--- NOTE | 2016-08-19 00:36 | PCM.PNMED ---
Subjective Date of Service Aug 19, 2016 Subjective He has no new complaints other than some itching. There is no rash and itching is very mild and was mostly relieved with his Claritin pill. He has no abdominal pain but does have chronic back pain. Exam Vital Signs Vital Sign - Last Date Time Temp Pulse Resp B/P Pulse Ox O2 Delivery O2 Flow Rate FiO2 08/18/16 22:23 37.1 77 18 125/59 97 Room Air Intake and Output 08/18/16 08/18/16 08/19/16 Cumulative From/Thru 15:00 23:00 07:00 08/16/16 00:45 - 08/18/16 20:02 Intake Total 500 ml 1854 ml Output Total 875 ml 3002 ml Balance -375 ml -1148 ml Intake Oral 500 ml 1854 ml Output Urine Total 875 ml 3000 ml Urine/Stool Mix 2 ml # Voids 1 2 Exam General: Patient lying in bed, No acute distress, well-developed, well-nourished , appropriately interactive. However, he mumbles and is difficult to understand. This is normal for him according to his family. HEENT: Normocephalic, atraumatic. External ears without defect. Pupils equal, round, and reactive to light. Anicteric sclerae, moist conjunctivae, and no lid lag. Oropharynx free of erythema and cobble stoning with moist mucosa. Dentures. Hearing aid right ear. Left ear with cerumen, otherwise no visible erythema. Right ear without erythema. Neck: Supple. No lymphadenopathy or thyromegaly. Cardiovascular: Regular rate and rhythm with no murmurs, rubs, or gallops appreciated Pulmonary: Clear to auscultation bilaterally with no crackles, wheezes, or rhonchi. Normal respiratory effort with no use of accessory muscles. Abdomen: Bowel tones present. Soft, nontender, nondistended. Extremities: No clubbing, cyanosis, edema, or lymphadenopathy appreciated. Skin: Normal temperature, turgor, and texture; no rash, ulcers, or subcutaneous nodules appreciated. Neurological: Cranial nerves grossly intact. Motor strength 5/5 in upper and lower extremities bilaterally. Sensation equal in upper and lower extremities bilaterally. Normal muscle strength, tone, and bulk. Slurred, mumbling speech at baseline per family. Psychiatric: Normal mood and affect. Alert and oriented to person, place, and time. Lab and Diagnostics Result Diagram: 1/17/17 0655 08/18/16654 Microbiology Blood cultures are pending and influenza screen is negative X-Rays, CTs and MRIs 08/16/2016 CT HEAD WITHOUT CONTRAST CONCLUSION: Moderate involutional changes. Moderate patchy low density bilaterally in the deep white matter likely due to chronic ischemic small vessel disease. No acute intracranial abnormality. Radiologist: Jhonny Pineda MD Cardiac Echo Impressions Echocardiogram Report Name: CAROLINE KAY Study Date: 08/30/2015 Height: 67 in Hospital Exam Location: [facility] Weight: 162 lb Gender: Other BSA: 1.8 m2 : 1930 Age: 84 yrs BP: 122/64 mmHg Reason For Study: Aortic valve regurgitation Ordering Physician: Performed By: Messi Schultz Referring Physician: Jose Dejesus Interpretation Summary Left ventricular size is at the upper limits of normal and left ventricular systolic function appears normal except for a mild dyssynchronous contraction pattern, consistent with a conduction abnormality and septal motion consistent with post-operative state but no other focal wall motion abnormalities. The ejection fraction is estimated to be 60-65%. The E/A ratio is reversed with an elevated E/E', suggesting impaired early relaxation of the left ventricle with possible increased filling pressures but is unchanged compared to the previous study. There has been no significant change since the previous study. The right ventricle is normal in size and function and is unchanged compared to the previous study. The right ventricular systolic pressure is estimated at 21 mmHg assuming a right atrial pressure of 3 mm Hg, and is unchanged compared to the previous study. The left atrium is mildly dilated and has mildly increased in size since the prior echo exam. There is mild mitral regurgitation and mild-moderate aortic regurgitation. Both are unchanged compared to the previous study. There is no other significant valvular heart disease. The ascending aorta is moderately enlarged but is unchanged compared to the previous study. The abdominal aorta is borderline dilated at 2.9 cm. Assessment & Plan Patient is an 85-year-old male with CAD s/p CABG, hypothyroidism, hypertension, dyslipidemia and history of TIA presenting weakness and confusion and admitted for possible TIA. 1. Suspected TIA. Present on admission. Active -Patient reportedly with history of TIAs, most recently 07/28/2016 -Head CT without acute intracranial activity -Patient presented with confusion and weakness; now back at baseline -Neuro checks Q4 hours -Continue Plavix, ASA, statin -TSH pending -MRI stroke protocol to be done in a.m. -Echocardiogram with bubble study - He have checked CT angiogram of the chest as suggested by MRI stroke protocol to look for thoracic aortic aneurysm. 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 I discussed this with Dr. Eugene, who is the senior bookkeeper physical education specialist, and he also believes it is chronic and nothing to worry about. A repeat CT angiogram was recommended by radiology and could be performed to see if there is any progression of the dissection the next 48-72 hours. We will order CT angiogram again in a.m. to C3 is any change in the dissection. Dr. Watson his ordered an EEG and awaiting final interpretation: Dr. Watson's recommendations today are as follows. "Today I met his daughter. She was at the bedside. She reports that there have been no overnight events. He has not had any further spells. She also reports that they have attributed his speech to a prior TIA or stroke. However, I explained that I suspect that this may be secondary to his severe auditory impairment as an extensive evaluation has been performed and did not reveal any evidence of a stroke or any evidence suggestive of a recent transient ischemic attack. I did also discuss in detail the nature of the differential diagnosis for this patient. We discussed the potential etiology for the spells. I explained that TIAs were unlikely to be the explanation for his multiple stereotyped spells as, by this point, he would have most likely had a stroke. We discussed the possibility that the spells may represent an ictal phenomenon. Although the mild degree of slowing noted over the left temporal lobe intermittently on the electroencephalogram is not clearly ictal in nature, it can be seen in a postictal satting. We did discuss an empirical trial of levetiracetam. We did discuss starting with a renally appropriate dose. In this case, 500 mg twice daily. Reviewed side effects in detail. There have been no overnight spells. We discussed the role of levetiracetam as an empirical trial. We also discussed the importance of followup as an outpatient. We discussed the possibility that the spells may represent an ictal phenomenon in detail. I discussed this with the patient and the patient's daughter." 2. Leukocytosis. Present on admission. Active -WBC improved from 12.1 to 8.9 today -Elevated at previous hospitalization (07/28/2017 - 07/29/2017) with WBC 16.1, 13.8 -Possibly reactive to stress; no signs of active infection (UA negative; No cough, fever, chills) -Procalcitonin pending 3. Hyperglycemia, acute. Present on admission. Active -Random blood glucose 150 -No reported history of diabetes -Continue to follow 4. Coronary artery disease s/p CABG. Present on admission -Continue statin, carvedilol 5. Hypertension, chronic. Present on admission -Patient currently normotensive. Will continue amlodipine 6. Hypothyroidism, chronic. Present on admission -Continue levothyroxine 25mcg -TSH pending 7. Dyslipidemia, chronic. Present on admission -Continue statin 8. Chronic kidney disease stage 3. Present on admission -Creatinine 1.07 -Avoid nephrotoxins -Continue to monitor 9. Normocytic anemia, chronic. Present on admission -Hgb 9.8, Hct 30.9 -Likely secondary to CKD. No obvious bleed -Monitor with CBC Patient Status: Discussed case with patient's daughter and son-in-law at length at bedside as the patient's was ill today. Would like to proceed with a CT and mammogram again today to compare with previous film to see if there is any progression of his aortic dissection in the infrarenal area. This is stable patient likely will be able to go home the next 24-48 hours. Pain Evaluation: Adequate Pain Control VTE Prophylaxis: Sub-Q Heparin (Unfractionated) VTE Mechanical Devices: Venous Foot Pump Resuscitation Status: CPR: Attempt Resuscitation Paul Velasquez MD Aug 19, 2016 00:35
[2016-08-19] MEDS: Heparin 5,000 Unit/mL Inj SUBQ SCH ×3 (01:30→18:33)
--- NOTE | 2016-08-19 06:17 | NUR ---
Mentation Pt has not varied far from usual base per daughter, neuro checks q4 . pt is cooperative and pleasant . Daughter in room assisting w ADL. Room Air Tele SR 76 Saline locked
[2016-08-19] MEDS: Omega-3 Fatty Acids 1,000 mg Capsule PO SCH (08:18)
[2016-08-19] MEDS: levETIRAcetam 500 mg Tablet PO SCH ×2 (08:20→21:32)
[2016-08-19] MEDS ORDERED: 0.9% Sodium Chloride 500 ML IV ONE (09:20)
[2016-08-19 09:59] LABS: BASOPHILS % (AUTO) 0.6 % (0-3); MONOCYTES % (AUTO) 8.6 % (4-12); Mean Corpuscular Hemoglobin 27.2 pg (27.0-35.0); Mean Corpuscular Volume 85.1 fL (81-100); NEUTROPHILS % (AUTO) 74.1 % (40-74); Platelet Count 468 bil/L (150-400)
--- NOTE | 2016-08-19 10:58 | NUR ---
Case Management: Clarification of patient status: inpatient per MD order on 08/19/16. Megan Melendez RN
[2016-08-19] MEDS ORDERED: 0.9% Sodium Chloride 500 ML ONE (13:30)
[2016-08-19] MEDS: diphenhydrAMINE 25 mg Capsule PO PRN (14:29)
--- NOTE | 2016-08-19 14:35 | DRSVH ---
PROCEDURE: ANGIO ABD/PELVIS W/CON INDICATIONS: Dissecting Infrarenal aortic aneurysm TECHNIQUE: After the administration of intravenous contrast, 2 and 5 mm sections acquired from the diaphragm to the iliac crests. 3-dimensional maximum intensity projection (MIP) coronal and sagittal reformats, a nd/or 3-dimensional volume rendering reformatting was then performed. For radiation dose reduction, the following was used: automated exposure control. COMPARISON: [facility], CT, CT ANGIO CHEST, 08/17/2016, 17:49. FINDINGS: Image quality: Excellent. Extravascular tissues: Cardiomegaly is present. Right pleural calcifications are present. There is mi ld dependent right basilar scarring versus atelectasis, as before. Liver and spleen are normal in siz e and enhancement. Gallbladder is contracted. Biliary system is non dilated. Pancreas enhances nor rachelle. No adrenal nodules. Kidneys are normal in size and enhancement, without hydronephrosis. Non -opacified bowel loops demonstrate normal wall thickness and caliber. No free fluid or air. No retr operitoneal or mesenteric adenopathy. Urinary bladder is decompressed. No ventral hernias. No suspic ious bony abnormalities. Healed left inferior pubic ramus fracture. No vertebral body compression fr actures. Abdominal aorta: No intramural hemorrhage is present to indicate acute dissection. As before, there i s a focal saccular aneurysm involving the left posterolateral aspect of the perirenal abdominal aorta , at the posterior aspect of the left renal artery stent, measuring 28 mm. As before, there is an inf rarenal abdominal aortic dissection, which extends roughly 75 mm inferior to the renal arteries. Michael tionally, within the distal infrarenal abdominal aorta, there is a focal limited dissection, involvin g the distal 50 mm of the abdominal aorta. There is fusiform aneurysmal dilatation of the infrarenal abdominal aorta, with a maximal short axis diameter of roughly 37 mm. There is a focal dissection wit hin the right proximal common iliac artery, which is limited. There is mild aneurysmal dilatation of the right common iliac artery, measuring 18 mm. There is a limited dissection within the mid and dist al aspects of the left common iliac artery, which demonstrates mild aneurysmal dilatation, measuring 21 mm. In external iliac arteries are patent. Renal and mesenteric arteries: There are single bilateral renal arteries. The right renal artery demo nstrates a mild origin stenosis, and is otherwise patent. There is a left renal artery stent, which o bscured visualization. The celiac artery demonstrates a high-grade origin stenosis. The superior mese nteric artery demonstrates a high-grade origin stenosis. Inferior mesenteric artery demonstrate a mod erate origin stenosis. IMPRESSION: 1. Multifocal infrarenal aortoiliac dissections as described above. No evidence of acute intramural h ematoma to indicate an acute process. 2. 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 3. 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 Inferior mesenteric julisa ry is moderately stenotic at its origin. 4. Asbestos related pleural disease. Dictated by: Nasir Lynn M.D. on 08/19/2016 at 14:33 Approved by: Nasir Lynn M.D. on 08/19/2016 at 14:33
--- NOTE | 2016-08-19 16:54 | NUR ---
Case Management: IMM already in chart and signed on 08/16/16 by patient's daughter. I reviewed and explained IMM to patient and his at 1535, all questions answered. Pt's Eva signed, this copy placed back in chart and copy given to patient and . Roseanne Hdez RN
--- NOTE | 2016-08-19 19:10 | NUR ---
Activity/Mentation: Patient has been calm and cooperative with care today. He is able to get up to the bathroom with 1 person assist with his front wheel walker. He has had family members at his bed side the whole day.
[2016-08-19] MEDS: LORazepam 0.5 mg Tablet PO PRN (19:30)
[2016-08-20] VITALS (7 sets, daily range): BP systolic 105–144; BP diastolic 52–64; PULSE 66–86; RESP 16–18; O2SAT 95–100
[2016-08-20] MEDS: Heparin 5,000 Unit/mL Inj SUBQ SCH ×2 (00:25→08:49)
--- NOTE | 2016-08-20 00:39 | PCM.PNMED ---
Subjective Date of Service Aug 20, 2016 Subjective Patient is speaking clearly today. The patient's and the patient's son have told me independently that they can understand him now for the first time in years. Exam Vital Signs Vital Sign - Last Date Time Temp Pulse Resp B/P Pulse Ox O2 Delivery O2 Flow Rate FiO2 08/19/16 16:38 37.3 70 19 129/65 95 Room Air Intake and Output 08/19/16 08/19/16 08/20/16 Cumulative From/Thru 15:00 23:00 07:00 08/16/16 00:45 - 08/19/16 19:38 Intake Total 590 ml 2544 ml Output Total 825 ml 5052 ml Balance -235 ml -2508 ml Intake Oral 590 ml 2544 ml Output Urine Total 825 ml 5050 ml Urine/Stool Mix 2 ml # Voids 3 5 Exam General: Patient is in no apparent distress. Speech is clearer than it has been in years. HEENT: Head is atraumatic normocephalic, with normal male pattern baldness. Eyes: Pupils are equally round and reactive to light and accommodation. Extraocular muscles are intact. Sclera are white anicteric. Subconjunctival mucosa is pink. Ears and nose are unremarkable. Oropharynx: There are no mucosal lesions, there is no thrush, there is no pharyngitis. Neck: Is supple, there is no nodes or masses or tenderness. Chest: Is clear to auscultation and percussion. There are no rales, rhonchi, wheezes or rubs. Heart: Rate rhythm is regular. There is no murmur rub or gallop. Abdomen: Good bowel sounds are present. Abdomen is soft, nontender, no organomegaly or masses were appreciated. Extremities: Are symmetrical and well perfused. There is no edema, there is no cellulitis, no rash. Neurologic: The patient appears to drag his right foot ambulating. Family states this started when he came in in July 2016 . Cranial nerves II through XII are intact except for decreased hearing. There are no new sensory deficits. Psychiatric: Patients mood is calm and shows no sign of agitation. Genital: Deferred Rectal: Deferred Lab and Diagnostics Result Diagram: 08/19/16 0947 08/19/16 0947 Microbiology Blood cultures are pending and influenza screen is negative X-Rays, CTs and MRIs 08/16/2016 CT HEAD WITHOUT CONTRAST CONCLUSION: Moderate involutional changes. Moderate patchy low density bilaterally in the deep white matter likely due to chronic ischemic small vessel disease. No acute intracranial abnormality. Radiologist: Jhonny Pineda MD Cardiac Echo Impressions Echocardiogram Report Name: CAROLINE KAY Study Date: 08/30/2015 Height: 67 in Hospital Exam Location: [facility] Weight: 162 lb Gender: Other BSA: 1.8 m2 : 1930 Age: 84 yrs BP: 122/64 mmHg Reason For Study: Aortic valve regurgitation Ordering Physician: Performed By: Messi Schultz Referring Physician: Jose Dejesus Interpretation Summary Left ventricular size is at the upper limits of normal and left ventricular systolic function appears normal except for a mild dyssynchronous contraction pattern, consistent with a conduction abnormality and septal motion consistent with post-operative state but no other focal wall motion abnormalities. The ejection fraction is estimated to be 60-65%. The E/A ratio is reversed with an elevated E/E', suggesting impaired early relaxation of the left ventricle with possible increased filling pressures but is unchanged compared to the previous study. There has been no significant change since the previous study. The right ventricle is normal in size and function and is unchanged compared to the previous study. The right ventricular systolic pressure is estimated at 21 mmHg assuming a right atrial pressure of 3 mm Hg, and is unchanged compared to the previous study. The left atrium is mildly dilated and has mildly increased in size since the prior echo exam. There is mild mitral regurgitation and mild-moderate aortic regurgitation. Both are unchanged compared to the previous study. There is no other significant valvular heart disease. The ascending aorta is moderately enlarged but is unchanged compared to the previous study. The abdominal aorta is borderline dilated at 2.9 cm. Assessment & Plan Patient is an 85-year-old male with CAD s/p CABG, hypothyroidism, hypertension, dyslipidemia and history of TIA presenting weakness and confusion and admitted for possible TIA. 1. Suspected TIA. Present on admission. Active -Patient reportedly with history of TIAs, most recently 07/28/2016 patient may have had a CVA at that time. Since that time he has been dragging his right foot which was a new deficit. -Head CT without acute intracranial activity -Patient presented with confusion and weakness; now back at baseline -Neuro checks Q4 hours -Continue Plavix, ASA, statin -TSH pending -MRI stroke protocol to be done in a.m. -Echocardiogram with bubble study - He have checked CT angiogram of the chest as suggested by MRI stroke protocol to look for thoracic aortic aneurysm. 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 I discussed this with Dr. Eugene, who is the retail marketing specialist logistics operations manager, and he also believes it is chronic and nothing to worry about. A repeat CT angiogram was recommended by radiology and could be performed to see if there is any progression of the dissection. -Repeat CT angiogram was performed and showed the following: "1. Multifocal infrarenal aortoiliac dissections as described above. No evidence of acute intramural hematoma to indicate an acute process. 2. 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 3. 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 Inferior mesenteric artery is moderately stenotic at its origin. 4. Asbestos related pleural disease. " -Dr. Watson his ordered an EEG and awaiting final interpretation: Dr. Watson began therapy with Keppra for possible full seizure activity. -The patient's speech has become clear for the first time in years according to the patient's and the patient's son who told me this independently today. Cause for the sudden dramatic improvement in speech is undetermined. Could be due to the addition of Keppra or the aspirin and Plavix therapy in combination or all of the above. 2. Leukocytosis. Present on admission. Active -WBC improved from 12.1 to 8.9 today -Elevated at previous hospitalization (07/28/2017 - 07/29/2017) with WBC 16.1, 13.8 -Possibly reactive to stress; no signs of active infection (UA negative; No cough, fever, chills) -Procalcitonin pending 3. Hyperglycemia, acute. Present on admission. Active -Random blood glucose 150 -No reported history of diabetes -Continue to follow 4. Coronary artery disease s/p CABG. Present on admission -Continue statin, carvedilol 5. Hypertension, chronic. Present on admission -Patient currently normotensive. Will continue amlodipine 6. Hypothyroidism, chronic. Present on admission -Continue levothyroxine 25mcg -TSH pending 7. Dyslipidemia, chronic. Present on admission -Continue statin 8. Chronic kidney disease stage 3. Present on admission -Creatinine 1.07 -Avoid nephrotoxins -Continue to monitor 9. Normocytic anemia, chronic. Present on admission -Hgb 9.8, Hct 30.9 -Likely secondary to CKD. No obvious bleed -Monitor with CBC Patient Status: Discussed case with patient's and son today. We will check labs in a.m. to ensure the patient has not developed contrast nephropathy. Dr. Argueta will follow in a.m. and may discuss the case with a vascular surgeon if he thinks this is necessary to do so. Suspect the aortic dissection findings on previous and current CT angiograms are chronic in nature. Certainly patient should follow-up with a vascular veterinary surgery technologist as an outpatient for further opinion.. Pain Evaluation: Adequate Pain Control VTE Prophylaxis: Sub-Q Heparin (Unfractionated) VTE Mechanical Devices: Venous Foot Pump Resuscitation Status: CPR: Attempt Resuscitation Paul Velasquez MD Aug 20, 2016 00:39
--- NOTE | 2016-08-20 02:51 | NUR ---
activity/mentation Pt was cooperative with cares, difficult to understand speech. remained for the evening to help. No complaints of pain or discomfort. Uses urinal at bedside standing with FWW. Left room with call light at bedside.
[2016-08-20 07:46] LABS: BASOPHILS % (AUTO) 0.5 % (0-3); EOSINOPHILS % (AUTO) 3.4 % (0-5); MONOCYTES % (AUTO) 7.6 % (4-12); Mean Corpuscular Hemoglobin 27.5 pg (27.0-35.0); Mean Corpuscular Volume 85.5 fL (81-100); NEUTROPHILS % (AUTO) 73.1 % (40-74); Platelet Count 471 bil/L (150-400)
[2016-08-20 08:18] LABS: Magnesium 1.8 mg/dL (1.6-2.6); Phosphorus 2.8 mg/dL (2.5-4.9)
[2016-08-20] MEDS: levETIRAcetam 500 mg Tablet PO SCH (08:35)
[2016-08-20] MEDS: Omega-3 Fatty Acids 1,000 mg Capsule PO SCH (08:42)
--- NOTE | 2016-08-20 11:21 | PCM.DIMED ---
Discharge Instructions Date of Service Aug 20, 2016 Dates of Hospitalization Aug 16, 2016 at 02:59 Discharge Diagnosis Discharge Diagnosis Acute Seizure, postictal TIA Medication Instructions Please continue taking your Keppra as directed which is a new antiseizure medication. Please follow up with Dr. zavala of neurology by calling the neurology clinic and making an appointment. Please follow up with your primary care physician Dr. Dejesus in 1-2 weeks. He had been discharged with home health occupational therapy and physical therapy Your symptoms may have been from mini strokes which we are treating with aspirin and Plavix or possibly seizures which we are treating with Keppra. Please call your primary care physician or come directly to the ER if having recurrent symptoms or chest pains, shortness of breath or any allergic reactions including rash. Test Results CT angiography: IMPRESSION: 1. Dissection of the infrarenal abdominal aorta partially visualized and of indeterminate acuity. Recommend correlation clinically and dedicated repeat study of the distal aorta and iliac arteries for further evaluation when clinically feasible. 2. Small lobulated contour irregularities of the aorta at the level of the renal arteries suspicious for pseudoaneurysms or penetrating atherosclerotic ulcers. 3. Aneurysmal dilatation of the thoracic aorta as described. 4. Focal stenoses at the origins of the celiac and superior mesenteric arteries and the right renal artery. 5. Vascular stents at the origins of the left subclavian and left renal arteries with patency not well evaluated. Findings discussed with Dr. Velasquez on 08/17/16 at 6:30 PM. Dictated by: Lowell Abad M.D. on 08/17/2016 at 18:36 Diet No restrictions Activity Home Health Phyical Therapy, Other (home health occupational therapy) Call your provider Fever or Chills, Shortness of breath, Chest pain, Vomitting Patient Instructions Please continue taking your Keppra as directed which is a new antiseizure medication. Please follow up with Dr. zavala of neurology by calling and making an appointment. Please follow up with your primary care physician Dr. Dejesus in 1-2 weeks. He had been discharged with home health occupational therapy and physical therapy Your symptoms may have been from mini strokes which we are treating with aspirin and Plavix or possibly seizures which we are treating with Keppra. Please call your primary care physician or come directly to the ER if having recurrent symptoms or chest pains, shortness of breath or any allergic reactions including rash. Follow-up plan As noted above Follow-up Provider: Arden Dejesus MD Follow-up with PCP in: 1 week Provider: Lon Zavala MD Follow-up in: 2 weeks Junito Argueta DO Aug 20, 2016 11:21
[2016-08-20] MEDS ORDERED: KEP500TA PO (11:25)
[2016-08-20] MEDS ORDERED: ASPI81TA3 PO (11:25)
--- NOTE | 2016-08-20 11:33 | PCM.DC.MED ---
Discharge Summary Date of Service Aug 20, 2016 Dates of Hospitalization Date of Hospital Admission Aug 16, 2016 at 02:59 Date of Discharge: Aug 20, 2016 Providers: Admitting Physician: Ashok Chin MD Primary Care Physician: Arden Dejesus MD Attending Physician: Ashok Chin MD Diagnosis at Time of Discharge Diagnosis at Time of Discharge Acute Seizure, postictal TIA Consultations Dr. Lon Jamil, neurology Procedures XRay, CTs & MRIs 08/16/2016 CT HEAD WITHOUT CONTRAST CONCLUSION: Moderate involutional changes. Moderate patchy low density bilaterally in the deep white matter likely due to chronic ischemic small vessel disease. No acute intracranial abnormality. Radiologist: Jhonny Pineda MD MRI stroke protocol IMPRESSION: Excessive motion artifact. BRAIN MRI: 1. No acute intracranial hemorrhage or ischemia. 2. Extensive chronic small vessel ischemic changes and parenchymal atrophy are similar to the previous exam. 3. Excessive motion artifact limits evaluation of the brain for subtle abnormalities. BRAIN MR ANGIOGRAM: Unchanged appearance of the intracranial arteries within the anterior and posterior circulation. No occlusions or high-grade narrowing is present. No aneurysms. NECK MR ANGIOGRAM: 1. Unchanged appearance of the carotid and vertebral arteries without high- grade narrowing, aneurysm, or occlusion. 2. Artifact from a presumed stent within the left carotid bulb obscures evaluation of this portion of the artery. However, flow beyond this region is present. 3. Artifact from presumed stents at the distal aspect right brachiocephalic artery near the right common carotid artery origin and at the origin of the left subclavian artery are similar to the previous exam and results in limited evaluation of these vessels at these locations. Flow is seen beyond these regions. 4. Prominent irregularity of the thoracic aorta arch with possible aneurysmal dilatation on the posterior arch. Please consider CT angiogram of the thoracic aorta for better evaluation. The estimate of stenosis included in the report of the imaging study was calculated using the NASCET method Dictated by: Marcus Bonner M.D. on 08/16/2016 at 11:45 Cardiac Echo Impression Echocardiogram Report Name: CAROLINE KAY Study Date: 08/30/2015 Height: 67 in Hospital Exam Location: [facility] Weight: 162 lb Gender: Other BSA: 1.8 m2 : 1930 Age: 84 yrs BP: 122/64 mmHg Reason For Study: Aortic valve regurgitation Ordering Physician: Performed By: Messi Schultz Referring Physician: Jose Dejesus Interpretation Summary Left ventricular size is at the upper limits of normal and left ventricular systolic function appears normal except for a mild dyssynchronous contraction pattern, consistent with a conduction abnormality and septal motion consistent with post-operative state but no other focal wall motion abnormalities. The ejection fraction is estimated to be 60-65%. The E/A ratio is reversed with an elevated E/E', suggesting impaired early relaxation of the left ventricle with possible increased filling pressures but is unchanged compared to the previous study. There has been no significant change since the previous study. The right ventricle is normal in size and function and is unchanged compared to the previous study. The right ventricular systolic pressure is estimated at 21 mmHg assuming a right atrial pressure of 3 mm Hg, and is unchanged compared to the previous study. The left atrium is mildly dilated and has mildly increased in size since the prior echo exam. There is mild mitral regurgitation and mild-moderate aortic regurgitation. Both are unchanged compared to the previous study. There is no other significant valvular heart disease. The ascending aorta is moderately enlarged but is unchanged compared to the previous study. The abdominal aorta is borderline dilated at 2.9 cm. Brief History Patient is an 85-year-old male with CAD s/p CABG, hypothyroidism, hypertension, dyslipidemia and history of TIA presenting weakness and confusion. Note the patient was recently hospitalized at [facility] on 07/28/2016 for dysarthria and left arm weakness, suspected secondary to TIA. The patient is accompanied by his daughter, Preethi, at bedside at time of visit. Patient's daughter is providing much of the history as the patient has slurred speech at baseline. She states the patient reported a headache yesterday (08/15/2016) evening then took Tylenol- codeine #4 and went to bed. He woke up about midnight with weakness, confusion and visual hallucinations. The patient subsequently asked his daughter to summon EMS and he was brought to [facility] ED for further evaluation. In the ED, the patient initially displayed some lower extremity weakness but did not meet criteria for thrombolytics. He received a head CT that did not show any acute intracranial abnormality. At time of visit, the patient was essentially back to his baseline per his daughter. The patient reports fatigue and bilateral ear discomfort but otherwise denies dizziness, lightheadedness, chest pain, nausea, emesis. In the ED, vitals: temp 37.2, HR 64, RR 16 satting 95%, BP 106/56. Notable labs : WBC 12.1, Hgb 9.8, Hct 30.9, platelets 518. Glucose 150. Hospital Course Patient is an 85-year-old male with CAD s/p CABG, hypothyroidism, hypertension, dyslipidemia and history of TIA presenting weakness and confusion and admitted for possible TIA. 1. Suspected TIA. Present on admission. Active -Patient reportedly with history of TIAs, most recently 07/28/2016 patient may have had a CVA at that time. Since that time he has been dragging his right foot which was a new deficit. -Head CT without acute intracranial activity -Patient presented with confusion and weakness; now back at baseline -Neuro checks Q4 hours were executed -Continue Plavix, ASA, statin upon discharge today -TSH okay -MRI stroke protocol to be done in a.m. -Echocardiogram with bubble study - He have checked CT angiogram of the chest as suggested by MRI stroke protocol to look for thoracic aortic aneurysm. 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 I discussed this with Dr. Eugene, who is the statistical geneticist seasonal retail merchandiser, and he also believes it is chronic and nothing to worry about. A repeat CT angiogram was recommended by radiology and could be performed to see if there is any progression of the dissection. -Repeat CT angiogram was performed and showed the following: "1. Multifocal infrarenal aortoiliac dissections as described above. No evidence of acute intramural hematoma to indicate an acute process. 2. 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 3. 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 Inferior mesenteric artery is moderately stenotic at its origin. 4. Asbestos related pleural disease. " -This was communicated with the family and further workup or studies to better characterize these aneurysmal dilatations have been declined per family and patient wishes. -Dr. Zavala his ordered an EEG and awaiting final interpretation: Dr. Zavala began therapy with Keppra for possible full seizure activity -to continue upon discharge and follow up with neurology clinic to determine length of treatment with Keppra or possible indefinite treatment -The patient's speech has become clear for the first time in years according to the patient's and the patient's son who told me this independently today. Cause for the sudden dramatic improvement in speech is undetermined. Could be due to the addition of Keppra or the aspirin and Plavix therapy in combination or all of the above. 2. Leukocytosis. Present on admission. Active -WBC improved -Elevated at previous hospitalization (07/28/2017 - 07/29/2017) with WBC 16.1, 13.8 -Possibly reactive to stress; no signs of active infection (UA negative; No cough, fever, chills) -Procalcitonin negative 3. Hyperglycemia, acute. Present on admission. Active -Random blood glucose 150 -No reported history of diabetes 4. Coronary artery disease s/p CABG. Present on admission -Continue statin, carvedilol upon discharge 5. Hypertension, chronic. Present on admission -Patient currently normotensive. Will continue amlodipine 6. Hypothyroidism, chronic. Present on admission -Continue levothyroxine 25mcg - TSH okay 7. Dyslipidemia, chronic. Present on admission -Continue statin 8. Chronic kidney disease stage 3. Present on admission -Creatinine 1.07 -Avoid nephrotoxins, such as NSAIDs upon discharge 9. Normocytic anemia, chronic. Present on admission -Hgb 9.8, Hct 30.9 -Likely secondary to CKD. No obvious bleed -Monitor with CBC Certainly patient should follow-up with a vascular brownfield redevelopment specialist as an outpatient for further opinion and desired by family, this decision was presented to patient's daughter who will likely decline follow-up Exam Vital Signs (Last) Date Time Temp Pulse Resp B/P Pulse Ox O2 Delivery O2 Flow Rate FiO2 08/20/16 09:00 36.7 66 17 144/64 100 Room Air Exam General: Patient is in no apparent distress. Speech is clearer than it has been in years. HEENT: Head is atraumatic normocephalic, with normal male pattern baldness. Eyes: Pupils are equally round and reactive to light and accommodation. Extraocular muscles are intact. Sclera are white anicteric. Subconjunctival mucosa is pink. Ears and nose are unremarkable. Oropharynx: There are no mucosal lesions, there is no thrush, there is no pharyngitis. Neck: Is supple, there is no nodes or masses or tenderness. Chest: Is clear to auscultation and percussion. There are no rales, rhonchi, wheezes or rubs. Heart: Rate rhythm is regular. There is no murmur rub or gallop. Abdomen: Good bowel sounds are present. Abdomen is soft, nontender, no organomegaly or masses were appreciated. Extremities: Are symmetrical and well perfused. There is no edema, there is no cellulitis, no rash. Neurologic: The patient appears to drag his right foot ambulating. Family states this started when he came in in July 2016 . Cranial nerves II through XII are intact except for decreased hearing. There are no new sensory deficits. Psychiatric: Patients mood is calm and shows no sign of agitation. Test 08/16/16 00:46 08/16/16 02:15 08/16/16 06:43 08/20/16 07:30 Prothrombin Time 11.3sec (8.1-12.5) Prothromb Time International Ratio 1.05ratio Activated Partial Thromboplast Time 36.4sec (22.8-33.0) Troponin T 0.010ug/L (0.0-0.011) Procalcitonin < 0.05ng/mL (See Comment) Hold [place] Top Tube Received (Received) Urine Color Yellow (YELLOW) Urine Appearance Clear (CLEAR,HAZY) Urine pH 7.0 (5.0-8.0) Urine Specific Ronks 1.010 (1.003-1.035) Urine Protein Negativemg/dL (NEG,TRACE) Urine Glucose (UA) Negativemg/dL (NEGATIVE) Urine Ketones Negativemg/dL (NEGATIVE) Urine Occult Blood Negative (NEGATIVE) Urine Nitrite Negative (NEGATIVE) Urine Bilirubin Negative (NEGATIVE) Urine Urobilinogen Normalmg/dL (NORMAL) Urine Leukocyte Esterase Negative (NEGATIVE) Urine RBC 0-2/hpf (0-2) Urine WBC 0-5/hpf (0-5) Urine Epithelial Cells Occasional/hpf (NONE-MOD) Urine Crystals None seen (NONE SEEN) Urine Bacteria None/hpf (NONE-FEW) Urine Hyaline Casts None/lpf (NONE) Urine Granular Casts None seen (NONE SEEN) Urine Waxy Casts None seen (NONE SEEN) Urine Red Blood Cell Casts None seen (NONE SEEN) Urine White Blood Cell Casts None seen (NONE SEEN) Urine Mucus None seen (None Seen) Urine Trichomonas None seen (NONE SEEN) Urine Yeast None (NONE SEEN) Urine Culture Reflexed Not indicated Thyroid Stimulating Hormone (TSH) 3.650uIU/mL (0.450-4.500) White Blood Count 10.8th/mm3 (3.8-10.1) Red Blood Count 3.46mil/mm3 (4.40-5.80) Hemoglobin 9.5g/dL (13.8-17.2) Hematocrit 29.6% (41.0-50.0) Mean Corpuscular Volume 85.5fL (81-100) Mean Corpuscular Hemoglobin 27.5pg (27.0-35.0) Mean Corpuscular Hemoglobin Concent 32.1% (32.0-37.0) Red Cell Distribution Width 13.6% (12.3-15.4) Platelet Count 471bil/L (150-400) Neutrophils (%) (Auto) 73.1% (40-74) Lymphocytes (%) (Auto) 14.5% (14-46) Monocytes (%) (Auto) 7.6% (4-12) Eosinophils (%) (Auto) 3.4% (0-5) Basophils (%) (Auto) 0.5% (0-3) Sodium Level 137mEq/L (134-144) Potassium Level 4.7mEq/L (3.5-5.2) Chloride Level 102mEq/L (97-108) Carbon Dioxide Level 23mmol/L (18-29) Blood Urea Nitrogen 12mg/dL (8-27) Creatinine 0.89mg/dL (0.76-1.27) Estimat Glomerular Filtration Rate 86mL/min (>59) Glucose Level 98mg/dL (60-99) Calcium Level 8.7mg/dL (8.5-10.1) Phosphorus Level 2.8mg/dL (2.5-4.9) Magnesium Level 1.8mg/dL (1.6-2.6) Total Bilirubin 0.3mg/dL (0.0-1.2) Aspartate Amino Transf (AST/SGOT) 19U/L (0-50) Alanine Aminotransferase (ALT/SGPT) 15U/L (0-44) Alkaline Phosphatase 96U/L (25-160) Total Protein 6.0g/dL (6.4-8.4) Albumin 3.1g/dL (3.4-5.0) Microbiology Results Blood cultures are pending and influenza screen is negative Discharge Medications Discharge Medications Albuterol Sulfate (Ventolin HFA Inhaler) 200 Puff/18 Gm Inhaler 2 PUFF INH q 4- 6 hrs (Reported) Amlodipine (Amlodipine) 10 Mg Tablet 10 MG PO DAILY (Reported) Aspirin Chew (Aspirin Chew) 81 Mg Chew 81 MG PO DAILY Prescribed by: MALACHI ARIAS DO Atorvastatin (Lipitor) 40 Mg Tablet 40 MG PO DAILY (Reported) Bimatoprost (Lumigan) 45 Drop/2.5 Ml Ophsoln 1 GTT BOTH_EYES HS (Reported) Brimonidine Tartrate (Alphagan P) 5 Ml Drops 0.1 ML OP BID (Reported) Carvedilol (Carvedilol) 12.5 Mg Tablet 12.5 MG PO QPM (Reported) Clopidogrel (Clopidogrel) 75 Mg Tablet 75 MG PO DAILY (Reported) Dutasteride (Dutasteride) 0.5 Mg Capsule 0.5 MG PO DAILY (Reported) Furosemide (Furosemide) 20 Mg Tab 10 MG PO DAILY (Reported) Levetiracetam (Keppra) 500 Mg Tablet 500 MG PO BID Prescribed by: MALACHI ARIAS DO Levothyroxine (Levothyroxine) 25 Mcg Tablet 25 MCG PO DAILY (Reported) Montelukast (Montelukast) 10 Mg Tablet 10 MG PO QPM (Reported) Multivitamin (Multivitamins) 1 Each Capsule 1 EACH PO DAILY (Reported) Niacinamide (Niacin) 500 Mg Tablet 500 MG PO DAILY (Reported) Whitt-3 Fatty Acids/Fish Oil (Whitt 3 1,000 mg Softgel) 1 Each Capsule 1 EACH PO DAILY (Reported) Whitt-3/Dha/Epa/Fish Oil (Fish Oil 1,000 mg Softgel) 1 Each Capsule 1 EACH PO DAILY (Reported) Tamsulosin ER (Tamsulosin ER) 0.4 Mg Cap.er.24h 0.4 MG PO DAILY (Reported) As needed Acetaminophen/Codeine 300-30mg (Tylenol/Codeine #3) 1 Each Tablet 1 TABLET PO Q6hrs PRN PRN Pain (Reported) Hydrocodone-Acetaminophen 5-300 mg (Hydrocodone-Acetaminophen 5-300 mg) 1 Each Tablet 1 TABLET PO QID PRN PRN For Pain (Reported) Lorazepam (Ativan) 0.5 Mg Tablet 0.5-1 MG PO HS PRN PRN For Sleep (Reported) Additional med instructions Please continue taking your Keppra as directed which is a new antiseizure medication. Please follow up with Dr. zavala of neurology by calling the neurology clinic and making an appointment. Please follow up with your primary care physician Dr. Dejesus in 1-2 weeks. He had been discharged with home health occupational therapy and physical therapy Your symptoms may have been from mini strokes which we are treating with aspirin and Plavix or possibly seizures which we are treating with Keppra. Please call your primary care physician or come directly to the ER if having recurrent symptoms or chest pains, shortness of breath or any allergic reactions including rash. Followup Plan Follow-up plan As noted above Discharge Diet: No restrictions Discharge Activity: Home Health Phyical Therapy, Other (home health occupational therapy) Patient Instructions Please continue taking your Keppra as directed which is a new antiseizure medication. Please follow up with Dr. zavala of neurology by calling and making an appointment. Please follow up with your primary care physician Dr. Dejesus in 1-2 weeks. He had been discharged with home health occupational therapy and physical therapy Your symptoms may have been from mini strokes which we are treating with aspirin and Plavix or possibly seizures which we are treating with Keppra. Please call your primary care physician or come directly to the ER if having recurrent symptoms or chest pains, shortness of breath or any allergic reactions including rash. Follow-up Provider: Arden Dejesus MD Follow-up with PCP in: 1 week Provider: Lon Zavala MD Follow-up in: 2 weeks Time spent 45 minutes spent with evaluation and management including discharge" coordination of care, greater than 50% of time spent [id number] copies to: Arden Dejesus MD; Lon Zavala MD, David DO Aug 20, 2016 11:33
--- NOTE | 2016-08-20 11:57 | NUR ---
Social Work: Discharge Data: Pt is on day 4 of hospitalization. EMR reviewed. D/C orders are in. PLANNING ENGINEER called [facility] and notified Mendez Parks, , that pt will discharge home today. Mendez to pickle solution maker F2F from hospital. No further d/c planning needs at this time. PLANNING ENGINEER will continue to follow if needs arise. Assessment: PT who is independent at baseline. Plan: Pt will d/c home via POV today with spouse with [facility], RN/PT/OT. No further d/c planning needs at this time. PLANNING ENGINEER will continue to follow if needs arise. BRAYAN Ramírez
--- NOTE | 2016-08-20 13:38 | NUR ---
Nursing discharge Note: Patient was discharged home at 1310. Patients IV was discontinued intact. All of patients discharge information was reviewed with his daughter (caregiver) and all of her questions were answered to her satisfaction . Patient was brought to the hospital lobby in a w/c by nursing staff member and he was driven home by his daughter.
--- NOTE | 2016-08-22 14:31 | PROCED ---
[address] [address] EEG PATIENT: CAROLINE WANG : 1930 MR#: [id number] ADMIT: 08/16/2016 JOB ID: [id number] DATE: 08/17/2016 HISTORY: The patient is an 85-year-old man with multiple spells. TECHNICAL DESCRIPTION: This digital EEG was recorded using 25 scalp and ear, and two EKG electrodes. It was reviewed in bipolar and referential montages following reformatting in 10-20 International Electrode Placement System. During the recording, the patient was noted to be awake, drowsy, and asleep. The background was composed of a 6-7 hertz posterior dominant rhythm that appeared to attenuate with eye opening. It appeared symmetrical. The rest of the background was composed of low voltage faster frequencies. There was intermixed slowing throughout this recording. There were no focal, lateralized, or epileptiform discharges noted. There were no seizures seen. There was one epoch of transient left temporal slowing noted. This appeared to be somewhat sharply contoured. There was no clear phase reversal noted. Hyperventilation was not performed due to heart disease. Photic stimulation from 1-30 hertz did not elicit any photic driving response. Sleep was characterized by the attenuation of the alpha rhythm and the appearance of symmetrical vertex waves, heralding stage 1 of sleep. This is followed by the development of symmetrical sleep spindles and K complexes, heralding stage 2 of sleep. The EKG rhythm strip revealed a heart rate of 60-80 beats per minute with no apparent arrhythmias. IMPRESSION: This EEG performed in the awake, drowsy, and asleep states is abnormal. The transient epoch of somewhat sharply contoured left temporal slowing is suggestive of an underlying focal, functional or structural defect. Clinical and/or neuro imaging correlation is advised. Clinical correlation is advised.
== END 2016-08-20 13:14 | disposition home health service (06) | DRG 69 ==
LOC: SED 00:40 → INTOOBSV 02:59 → MPC 02:59 → OBSVTOIN 02:59
PROVIDERS: ADMIT Hospitalist; ATTEND Hospitalist
DX: G45.8 Other transient cerebral ischemic attacks and related syndromes (principal); I25.10 Atherosclerotic heart disease of native coronary artery without angina pectoris; E03.9 Hypothyroidism, unspecified; I12.9 Hypertensive chronic kidney disease with stage 1 through stage 4 chronic kidney disease, or unspecified chronic kidney disease; E78.5 Hyperlipidemia, unspecified; Z87.891 Personal history of nicotine dependence; N18.3 Chronic kidney disease, stage 3 (moderate); R73.9 Hyperglycemia, unspecified; Z95.1 Presence of aortocoronary bypass graft; D63.1 Anemia in chronic kidney disease